=== PATIENT | female | born 1970 | race Caucasian/White ===

== ENCOUNTER 2017-03-27 15:53 | Emergency (ER) | payer SELFPAY ==
[2017-03-27] MEDS ORDERED: IBUPROFEN 200 MG TAB PO ONE (16:36)
[2017-03-27] MEDS ORDERED: traMADol 37.5MG/APAP 325MG 1 EA TAB PO ONE (16:37)
[2017-03-27] MEDS ORDERED: ONDANSETRON ODT 8 MG TAB SL ONE (16:37)
[2017-03-27 16:39] VITALS: TEMP 99
--- NOTE | 2017-03-27 17:00 | RAD ---
EXAM: Shoulder,Left 2 or More Views CLINICAL INDICATION: 47-year-old female status post trauma. TECHNIQUE: Two views LEFT shoulder were obtained in AP, internal/external rotation projection. COMPARISON: None. FINDINGS: There is no fracture or dislocation. The joint spaces are preserved. No soft tissue abnormalities are seen. IMPRESSION: Limited two views of the shoulder without findings to suggest acute fracture or dislocation. If there is clinical concern for dislocation, transscapular projection is recommended. Electronically signed by: Kasey Quiñonez MD 03/27/2017 4:58 PM CDT Workstation: [id number]
--- NOTE | 2017-03-27 17:15 | ED.PDOC ---
History of Present Illness - General Chief Complaint: Upper Extremity Injury Stated Complaint: LEFT SHOULDER PAIN Time Seen by Provider: 03/27/17 16:36 Source: patient Exam Limitations: no limitations - History of Present Illness Initial Comments: PT REPORTS HISTORY OF PREVIOUS ROTATOR CUFF INJURY TO LEFT SHOULDER ABOUT 1 YEAR AGO. PT REPORTS RE INJURING LEFT SHOULDER YESTERDAY AFTER CARRYING A BUCKET OF WATER. Occurred: yesterday Method of Injury: other - HEAVY LIFTING Improving Factors: immobilization Worsening Factors: movement Allergies/Adverse Reactions: Allergies NO KNOWN ALLERGY Allergy (Verified 05/12/15 15:04) Home Medications: Ambulatory Orders HYDROcodone 10MG/APAP 325MG [Rosepine 10/325] 1 tab PO TID PRN 05/12/15 Levothyroxine Sodium 100 mcg PO DAILY 09/22/15 Lorazepam 0.5 mg PO BID PRN #10 tab 04/02/16 Ibuprofen 800 mg PO Q8HR PRN #30 tab 03/27/17 Tramadol HCl 50 mg PO Q6HRS #30 tab 03/27/17 Review of Systems - Review of Systems Constitutional: Denies: chills, fever Respiratory: Denies: cough, short of breath Cardiology: Denies: chest pain, palpitations Musculoskeletal: States: see HPI, joint pain, muscle pain. Denies: joint swelling Past Medical History (General) - Patient Medical History Hx Seizures: No Hx Stroke: No Hx Dementia: No Hx Asthma: No Hx of COPD: No Hx Cardiac Disorders: No Hx Congestive Heart Failure: No Hx Pacemaker: No Hx Hypertension: No Hx Thyroid Disease: Yes Hx Diabetes: No Hx Gastroesophageal Reflux: Yes - Hx hiatal hernia Hx Renal Disease: No Hx Cancer: No Hx of HIV: No Hx Hepatitis C: No Hx MRSA: No Surgical History: tonsillectomy, Hysterectomy, other - Vaccination History Hx Influenza Vaccination: Yes Hx Pneumococcal Vaccination: No - Social History Hx Tobacco Use: Yes - Female History Patient : No Family Medical History - Family History Mother Family History: Unknown Living Status: Hx Family Cancer: Yes - breast w/METS Physical Exam - Physical Exam General Appearance: Alert, Obvious distress Neck: non-tender, full range of motion Cardiovascular/Respiratory: regular rate, rhythm, no M/R/G, normal breath sounds Back Exam: normal inspection, no vertebral tenderness Shoulder Exam: normal inspection, soft tissue tenderness - DIFFUSE Elbow/Forearm Exam: normal inspection, non-tender, no evidence of injury Wrist Exam: normal inspection, non-tender, no evidence of injury Hand Exam: normal inspection, non-tender, no evidence of injury Neuro/Tendon: normal sensation Mental Status: alert, oriented x 3 Skin Exam: normal color, warm/dry Progress - Progress Progress: 03/27/17 17:16 XRAY FINDINGS DISCUSSED WITH PT. WILL PLACE PT IN [place] AND RECOMMEND CONTINUED NSAIDS AND TRAMADOL ALONG WITH ORTHO REFERRAL IF SYMPTOMS PERSIST. - EKG/XRAY/CT XRAY: LEFT SHOULDER, WNL PER RAD Departure - Departure Clinical Impression: Sprain and strain of shoulder and upper arm Time of Disposition: 17:17 Disposition: Discharge to Home or Self Care Condition: Good Departure Forms: ED Discharge - Pt. Copy, Patient Portal Self Enrollment Activity: no lifting, no pushing/pulling with affected limb Referrals: Jeremy Garcia MD [Active Staff] - 1-2 Weeks Prescriptions: Tramadol HCl 50 mg PO Q6HRS #30 tab Ibuprofen 800 mg PO Q8HR PRN #30 tab PRN Reason: Pain Home Medications: Ambulatory Orders HYDROcodone 10MG/APAP 325MG [Rosepine 10/325] 1 tab PO TID PRN 05/12/15 Levothyroxine Sodium 100 mcg PO DAILY 09/22/15 Lorazepam 0.5 mg PO BID PRN #10 tab 04/02/16 Ibuprofen 800 mg PO Q8HR PRN #30 tab 03/27/17 Tramadol HCl 50 mg PO Q6HRS #30 tab 03/27/17
[2017-03-27 17:47] VITALS: BP 110/72; O2SAT 97
== END 2017-03-27 17:47 | disposition home or self-care (01) ==
LOC: ER 15:53
DX: S43.409A Unspecified sprain of unspecified shoulder joint, initial encounter (principal); E07.9 Disorder of thyroid, unspecified; K21.9 Gastro-esophageal reflux disease without esophagitis; K44.9 Diaphragmatic hernia without obstruction or gangrene; Z87.891 Personal history of nicotine dependence; X58.XXXA Exposure to other specified factors, initial encounter

== ENCOUNTER 2017-04-20 19:37 | Emergency (ER) | payer SELFPAY ==
[2017-04-20 19:52] VITALS: TEMP 99
[2017-04-20] MEDS ORDERED: SODIUM CHLORIDE 0.9% 1000ML 1,000 ML IVS ONE (19:56)
[2017-04-20] MEDS ORDERED: ONDANSETRON INJ 4 MG/2 ML VIAL IV ONE (19:56)
--- NOTE | 2017-04-20 19:59 | ED.PDOC ---
History of Present Illness - General Chief Complaint: GI Problem Stated Complaint: nausea all day Time Seen by Provider: 04/20/17 19:51 Information Source: patient, RN notes reviewed, Vital Signs reviewed Exam Limitations: no limitations - History of Present Illness Initial Comments: Patient comes to ER via private vehicle with c/o nausea and vomiting all day. No fever, chills, abdominal pain or diarrhea. Reports she has not been able to even keep a sip of water down. Feels thirsty. Abdominal Pain Onset Location: other - Denies Timing/Duration: 7-24 hours Improving Factors: nothing Worsening Factors: eating Associated Symptoms: nausea/vomiting Review of Systems - Review of Systems Constitutional: States: malaise. Denies: chills, fever EENTM: States: no symptoms reported Respiratory: States: no symptoms reported Cardiology: States: no symptoms reported Gastrointestinal/Abdominal: States: nausea, vomiting. Denies: abdominal pain, diarrhea Genitourinary: States: no symptoms reported Musculoskeletal: States: no symptoms reported Skin: States: no symptoms reported Neurological: States: no symptoms reported All other Systems: No Change from Baseline Past Medical History (General) - Patient Medical History Hx Seizures: No Hx Stroke: No Hx Dementia: No Hx Asthma: No Hx of COPD: No Hx Cardiac Disorders: No Hx Congestive Heart Failure: No Hx Pacemaker: No Hx Hypertension: No Hx Thyroid Disease: Yes Hx Diabetes: No Hx Gastroesophageal Reflux: Yes - Hx hiatal hernia Hx Renal Disease: No Hx Cancer: No Hx of HIV: No Hx Hepatitis C: No Hx MRSA: No Surgical History: Hysterectomy - Vaccination History Hx Influenza Vaccination: Yes Hx Pneumococcal Vaccination: No Immunizations Up to Date: No - Social History Hx Tobacco Use: Yes - Female History Patient is a Female of Child Bearing Age (10 -59 yrs old): No Patient : No Family Medical History - Family History Mother Family History: Unknown Living Status: Hx Family Cancer: Yes - breast w/METS Physical Exam - Physical Exam General Appearance: Alert, No apparent distress, Ill Appearing, Well Developed, Well Groomed, Well Hydrated, Well Nourished Neck: non-tender, supple, normal inspection Respiratory: lungs clear, normal breath sounds, no respiratory distress, no accessory muscle use Cardiovascular/Chest: regular rate, rhythm, no gallop, no JVD, no murmur Gastrointestinal/Abdominal: soft, no organomegaly, no pulsatile mass, abnormal bowel sounds - hyperactive, tenderness - mild, diffuse w/o guarding or rebound Extremity: normal range of motion Neurologic: alert, normal mood/affect, oriented x 3 Skin Exam: normal color, warm/dry Comments: Last Vital Signs Temp 99.0 F 04/20/17 19:47 Pulse 70 04/20/17 19:47 Resp 18 04/20/17 19:47 BP 134/86 04/20/17 19:47 Pulse Ox 97 04/20/17 19:47 Progress - Progress Progress: 04/20/17 20:32 Patient reports no improvement with Zofran 8mg IV. Will give Phenergan 12.5mg IV 04/20/17 21:22 Patient reports she is feeling better. No vomiting since arrival to ER - Results/Orders Results/Orders: Laboratory Tests 04/20/17 04/20/17 19:56 19:56 WBC 8.6 RBC 4.51 Hgb 13.7 Hct 40.5 MCV 89.9 MCH 30.3 MCHC 33.7 RDW 14.4 Plt Count 285 MPV 10.1 Absolute Neuts (auto) 5.40 Absolute Lymphs (auto) 1.90 Absolute Monos (auto) 0.80 Absolute Eos (auto) 0.40 Absolute Basos (auto) 0.10 Neutrophils % 63.1 Lymphocytes % 22.2 Monocytes % 8.9 Eosinophils % 4.8 Basophils % 1.0 Sodium 140 Potassium 3.6 Chloride 103 Carbon Dioxide 29 Anion Gap 11.6 L BUN 11 Creatinine 0.80 BUN/Creatinine Ratio 13.8 Random Glucose 104 Serum Osmolality 279.1 Calcium 9.2 Departure - Departure Clinical Impression: Vomiting Qualifiers: Vomiting type: bilious vomiting Nausea presence: with nausea Qualified Code(s) : R11.14 - Bilious vomiting Time of Disposition: 21:33 Disposition: Discharge to Home or Self Care Condition: Good Departure Forms: ED Discharge - Pt. Copy, Patient Portal Self Enrollment Instructions: DI for Vomiting -- Adult Diet: resume usual diet Activity: increase activity as tolerated Prescriptions: Promethazine Tab [Phenergan Tablet] 25 mg PO Q6HRS PRN #12 tab PRN Reason: Nausea/Vomiting Home Medications: Ambulatory Orders Promethazine Tab [Phenergan Tablet] 25 mg PO Q6HRS PRN #12 tab 04/20/17
[2017-04-20] MEDS ORDERED: PROMETHAZINE HCL INJ 12.5 MG in SODIUM CHLORIDE 0.9% 50ML 50 ML IVPB ONE (20:33)
[2017-04-20] MEDS ORDERED: SODIUM CHLORIDE 0.9% 50ML 50 ML ONE (20:44)
[2017-04-20] MEDS ORDERED: PROMETHAZINE HCL INJ 25 MG/ML VIAL ONE (20:44)
[2017-04-20 21:46] VITALS: BP 127/79; O2SAT 99
== END 2017-04-20 21:47 | disposition home or self-care (01) ==
LOC: ER 19:37
DX: R11.14 Bilious vomiting (principal); E07.9 Disorder of thyroid, unspecified; K21.9 Gastro-esophageal reflux disease without esophagitis; K44.9 Diaphragmatic hernia without obstruction or gangrene; Z87.891 Personal history of nicotine dependence; Z80.3 Family history of malignant neoplasm of breast
CPT/HCPCS: 36415; 80048; 85025; A4216; J2405; J2550; J7030

== ENCOUNTER 2017-08-30 12:54 | Emergency (ER) | payer SELFPAY ==
[2017-08-30 13:08] VITALS: TEMP 98.6
[2017-08-30] MEDS ORDERED: KETOROLAC TROMETHAMINE INJ 60 MG/2 ML VIAL IM ONE (13:15)
[2017-08-30] MEDS ORDERED: ORPHENADRINE CITRATE 30 MG/ML AMP IM ONE (13:16)
[2017-08-30] MEDS ORDERED: PROMETHAZINE HCL INJ 25 MG/ML VIAL IM ONE (13:17)
--- NOTE | 2017-08-30 13:18 | ED.PDOC ---
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 She has no radiation to ther legs No numbness No sphincter Dysfunction At home she takes Exedrin as needed for pain She denies any New injury Quality/Severity: moderate, severe Back Pain Location: lumbar spine Method of Injury/Prior Injury: prior injury Improving Factors: nothing Worsening Factors: movement Associated Symptoms: denies symptoms Allergies/Adverse Reactions: Allergies NO KNOWN ALLERGY Allergy (Verified 05/12/15 15:04) Home Medications: Ambulatory Orders Acetamin W/Cod #3 Tab [Tylenol w/CODEINE #3] 1 ea PO Q6HR PRN #40 tab 08/30/17 Cyclobenzaprine HCl [Flexeril] 10 mg PO Q8HR #30 tab 08/30/17 Review of Systems - Review of Systems Constitutional: States: no symptoms reported EENTM: States: no symptoms reported Respiratory: States: no symptoms reported Cardiology: States: no symptoms reported Gastrointestinal/Abdominal: States: no symptoms reported Genitourinary: States: no symptoms reported Musculoskeletal: States: no symptoms reported Skin: States: no symptoms reported Neurological: States: no symptoms reported Endocrine: States: no symptoms reported Hematologic/Lymphatic: States: no symptoms reported Past Medical History (General) - Patient Medical History Hx Seizures: No Hx Stroke: No Hx Dementia: No Hx Asthma: No Hx of COPD: No Hx Cardiac Disorders: No Hx Congestive Heart Failure: No Hx Pacemaker: No Hx Hypertension: No Hx Thyroid Disease: Yes Hx Diabetes: No Hx Gastroesophageal Reflux: Yes - Hx hiatal hernia Hx Renal Disease: No Hx Cancer: No Hx of HIV: No Hx Hepatitis C: No Hx MRSA: No - Vaccination History Hx Influenza Vaccination: Yes Hx Pneumococcal Vaccination: No - Social History Hx Tobacco Use: Yes - Female History Patient : No Family Medical History - Family History Mother Family History: Unknown Living Status: Hx Family Cancer: Yes - breast w/METS Physical Exam - Physical Exam General Appearance: Anxious, Well Developed, Well Groomed, Well Hydrated, Well Nourished Eyes, Ears, Nose, Throat Exam: TMs normal Neck Exam: non-tender, full range of motion, normal alignment Cardiovascular/Respiratory: regular rate, rhythm, no M/R/G, normal peripheral pulses, no JVD, normal breath sounds Gastrointestinal/Abdominal: normal bowel sounds, non tender, soft, no organomegaly, no pulsatile mass Extremity Exam: no evidence of injury, normal range of motion, non-tender Departure - Departure Clinical Impression: Lumbar back pain Disposition: Discharge to Home or Self Care Condition: Good Departure Forms: ED Discharge - Pt. Copy, Patient Portal Self Enrollment Diet: regular diet Activity: walking as tolerated Home Medications: Ambulatory Orders Acetamin W/Cod #3 Tab [Tylenol w/CODEINE #3] 1 ea PO Q6HR PRN #40 tab 08/30/17 Cyclobenzaprine HCl [Flexeril] 10 mg PO Q8HR #30 tab 08/30/17
[2017-08-30 15:02] VITALS: BP 106/59; O2SAT 97
== END 2017-08-30 15:04 | disposition home or self-care (01) ==
LOC: ER 12:54
DX: M54.5 Low back pain (principal); E07.9 Disorder of thyroid, unspecified; K21.9 Gastro-esophageal reflux disease without esophagitis; K44.9 Diaphragmatic hernia without obstruction or gangrene; Z87.891 Personal history of nicotine dependence
CPT/HCPCS: J1885; J2360; J2550

== ENCOUNTER 2018-01-26 12:13 | Emergency (ER) | payer SELFPAY ==
[2018-01-26 12:59] VITALS: TEMP 98.8; O2SAT 100
--- NOTE | 2018-01-26 13:15 | ED.PDOC ---
History of Present Illness - General Chief Complaint: Upper Extremity Injury Stated Complaint: left upper extremity/neck pain Time Seen by Provider: 01/26/18 12:16 Source: patient Exam Limitations: no limitations - History of Present Illness Initial Comments: the patient is a 47-year-old female presenting to the emergency room secondary to pain in her left shoulder that is of a long duration. She has recently had a flare of her left shoulder pain that is chronic. She has had multiple rotator cuff injuries in the past. She has had rhomboid strains in the past. She has also had multiple spinal fractures in the past. She has a history of opioid abuse. The patient is having some spasm of the rhomboid muscle and she is also having some tightening of the rotator cuff on the left. She is having some mild paresthesias down her left arm from this. There is no significant muscle wasting that I can see. She is neurovascularly preserved otherwise. She is alert and oriented. No recent injury. Timing/Duration: unsure Severity: moderate Improving Factors: nothing Worsening Factors: movement Associated Symptoms: denies symptoms Allergies/Adverse Reactions: Allergies NO KNOWN ALLERGY Allergy (Verified 05/12/15 15:04) Home Medications: Ambulatory Orders Acetamin W/Cod #3 Tab [Tylenol w/CODEINE #3] 1 ea PO Q6HR PRN #40 tab 08/30/17 Cyclobenzaprine HCl [Flexeril] 10 mg PO Q8HR #30 tab 08/30/17 Cyclobenzaprine HCl [Flexeril] 5 mg PO TID PRN #30 tab 01/26/18 Review of Systems - Review of Systems Constitutional: States: no symptoms reported EENTM: States: no symptoms reported Respiratory: States: no symptoms reported Cardiology: States: no symptoms reported Gastrointestinal/Abdominal: States: no symptoms reported Genitourinary: States: no symptoms reported Musculoskeletal: States: see HPI Skin: States: no symptoms reported Neurological: States: no symptoms reported Endocrine: States: no symptoms reported All other Systems: No Change from Baseline Past Medical History (General) - Patient Medical History Hx Seizures: No Hx Stroke: No Hx Dementia: No Hx Asthma: No Hx of COPD: No Hx Cardiac Disorders: No Hx Congestive Heart Failure: No Hx Pacemaker: No Hx Hypertension: No Hx Thyroid Disease: Yes Hx Diabetes: No Hx Gastroesophageal Reflux: Yes - Hx hiatal hernia Hx Renal Disease: No Hx Cancer: No Hx of HIV: No Hx Hepatitis C: No Hx MRSA: No - Vaccination History Hx Influenza Vaccination: Yes Hx Pneumococcal Vaccination: No - Social History Hx Tobacco Use: Yes - Female History Patient : No Family Medical History - Family History Mother Family History: Unknown Living Status: Hx Family Cancer: Yes - breast w/METS Physical Exam - Physical Exam General Appearance: Alert, Comfortable, No apparent distress Eye Exam: bilateral normal Ears, Nose, Throat: normal ENT inspection Neck: other - mild trapezius spasm Respiratory: no respiratory distress, no accessory muscle use Cardiovascular/Chest: normal peripheral pulses, no edema Peripheral Pulses: radial,right: 2+, radial,left: 2+ Gastrointestinal/Abdominal: non tender, soft Rectal Exam: deferred Back Exam: no CVA tenderness Extremity: no pedal edema, no calf tenderness, normal capillary refill, other - ee history of present illness Neurologic: shop director II-XII nml as tested, alert, normal mood/affect, oriented x 3, other - see history of present illness Skin Exam: normal color Comments: Vital Signs - 24 hr 01/26/18 12:46 Temperature 98.8 F Pulse Rate [ 89 left brachial] Respiratory 18 Rate Blood Pressure 119/73 [left brachial] O2 Sat by Pulse 100 Oximetry Progress - Progress Progress: 01/26/18 13:15 the patient is a 47-year-old female presenting with acute on chronic left shoulder pain likely related to previous spinal and rotator cuff injuries. She is having some muscle spasm. The patient is being given a dose of Toradol and prednisone here. She is going to be placed on Flexeril 5 mg 3 times a day as needed for the next week. She needs to do some range of motion exercises of the shoulder to help reduce spasm. Topical heat in the form of icy hot or Biofreeze or heat pad may also prove beneficial. She probably needs to restart some of her physical therapy exercises for the shoulder as well. She should follow up with her primary care doctor within the next week or 2. ER warnings were given for significant worsening. Departure - Departure Clinical Impression: Chronic pain in left shoulder Disposition: Discharge to Home or Self Care Condition: Fair Departure Forms: ED Discharge - Pt. Copy, Patient Portal Self Enrollment Diet: regular diet Activity: increase activity as tolerated Prescriptions: Cyclobenzaprine HCl [Flexeril] 5 mg PO TID PRN #30 tab PRN Reason: Muscle Spasms Home Medications: Ambulatory Orders Acetamin W/Cod #3 Tab [Tylenol w/CODEINE #3] 1 ea PO Q6HR PRN #40 tab 08/30/17 Cyclobenzaprine HCl [Flexeril] 10 mg PO Q8HR #30 tab 08/30/17 Cyclobenzaprine HCl [Flexeril] 5 mg PO TID PRN #30 tab 01/26/18 Additional Instructions: the patient is a 47-year-old female presenting with acute on chronic left shoulder pain likely related to previous spinal and rotator cuff injuries. She is having some muscle spasm. The patient is being given a dose of Toradol and prednisone here. She is going to be placed on Flexeril 5 mg 3 times a day as needed for the next week. She needs to do some range of motion exercises of the shoulder to help reduce spasm. Topical heat in the form of icy hot or Biofreeze or heat pad may also prove beneficial. She probably needs to restart some of her physical therapy exercises for the shoulder as well. She should follow up with her primary care doctor within the next week or 2. ER warnings were given for significant worsening.
[2018-01-26] MEDS: CYCLOBENZAPRINE HCL 10 MG TAB PO ONE (13:19)
[2018-01-26] MEDS: predniSONE 20 MG TAB PO ONE (13:19)
[2018-01-26] MEDS: KETOROLAC TROMETHAMINE INJ 30 MG/ML VIAL IM ONE (13:20)
[2018-01-26 13:41] VITALS: BP 116/76
== END 2018-01-26 13:44 | disposition home or self-care (01) ==
LOC: ER 12:13
DX: G89.29 Other chronic pain (principal); M25.512 Pain in left shoulder; E07.9 Disorder of thyroid, unspecified; K21.9 Gastro-esophageal reflux disease without esophagitis
CPT/HCPCS: J1885; J7512

== ENCOUNTER 2018-03-28 16:59 | Emergency (ER) | payer MEDICARE ==
[2018-03-28 17:14] VITALS: TEMP 97.7
[2018-03-28] MEDS ORDERED: CYCLOBENZAPRINE HCL 10 MG TAB PO ONE (17:31)
[2018-03-28] MEDS ORDERED: KETOROLAC TROMETHAMINE INJ 30 MG/ML VIAL IM ONE (17:31)
--- NOTE | 2018-03-28 17:36 | ED.PDOC ---
History of Present Illness - General Chief Complaint: General Stated Complaint: left shoulder pain Time Seen by Provider: 03/28/18 17:31 Source: patient, RN notes reviewed, Vital Signs reviewed, family Exam Limitations: no limitations - History of Present Illness Initial Comments: "My rotator cuff" pain. Chronic & recurring. Her plan with her PCP is to now get an MRI since she has insurance. Not a new problem. Occurred: other - 2 days ago Pain - Upper Extremity: severe: Shoulder, left Method of Injury: other - none Improving Factors: rest, other - "muscle relaxer & Toradol" Worsening Factors: movement Allergies/Adverse Reactions: Allergies NO KNOWN ALLERGY Allergy (Verified 03/28/18 17:14) Home Medications: Ambulatory Orders Acetamin W/Cod #3 Tab [Tylenol w/CODEINE #3] 1 ea PO Q6HR PRN #40 tab 08/30/17 Cyclobenzaprine HCl [Flexeril] 10 mg PO Q8HR #30 tab 08/30/17 Cyclobenzaprine HCl [Flexeril] 5 mg PO TID PRN #30 tab 01/26/18 Cyclobenzaprine HCl [Flexeril] 10 mg PO TID PRN #15 tab 03/28/18 Review of Systems - Review of Systems Constitutional: States: no symptoms reported EENTM: States: no symptoms reported Respiratory: States: no symptoms reported Cardiology: States: no symptoms reported Musculoskeletal: States: see HPI, other - specifically the trapezius Skin: States: no symptoms reported Neurological: States: no symptoms reported Past Medical History (General) - Patient Medical History Hx Seizures: No Hx Stroke: No Hx Dementia: No Hx Asthma: No Hx of COPD: No Hx Cardiac Disorders: No Hx Congestive Heart Failure: No Hx Pacemaker: No Hx Hypertension: No Hx Thyroid Disease: Yes Hx Diabetes: No Hx Gastroesophageal Reflux: Yes - Hx hiatal hernia Hx Renal Disease: No Hx Cancer: No Hx of HIV: No Hx Hepatitis C: No Hx MRSA: No Hx Other PMH: Yes - opiate addiction - Vaccination History Hx Influenza Vaccination: Yes Hx Pneumococcal Vaccination: No - Social History Hx Tobacco Use: Yes Hx Alcohol Use: No Hx Substance Use: - "chemical dependency" - Female History Patient : No Family Medical History - Family History Mother Family History: Unknown Living Status: Hx Family Cancer: Yes - breast w/METS Physical Exam - Physical Exam General Appearance: Alert, Comfortable, No apparent distress Neck: non-tender, full range of motion, supple, normal inspection Cardiovascular/Respiratory: no JVD Back Exam: normal inspection Shoulder Exam: normal inspection, no evidence of injury, limited ROM, pain - over left trapezius, soft tissue tenderness Elbow/Forearm Exam: normal inspection, non-tender, no evidence of injury Wrist Exam: no evidence of injury Departure - Departure Clinical Impression: Chronic pain in left shoulder Time of Disposition: 17:35 Disposition: Discharge to Home or Self Care Condition: Good Departure Forms: ED Discharge - Pt. Copy, Patient Portal Self Enrollment Referrals: SAVANAH BACH [Primary Care Provider] - 1-2 Weeks Prescriptions: Cyclobenzaprine HCl [Flexeril] 10 mg PO TID PRN #15 tab PRN Reason: Muscle Spasms Home Medications: Ambulatory Orders Acetamin W/Cod #3 Tab [Tylenol w/CODEINE #3] 1 ea PO Q6HR PRN #40 tab 08/30/17 Cyclobenzaprine HCl [Flexeril] 10 mg PO Q8HR #30 tab 08/30/17 Cyclobenzaprine HCl [Flexeril] 5 mg PO TID PRN #30 tab 01/26/18 Cyclobenzaprine HCl [Flexeril] 10 mg PO TID PRN #15 tab 03/28/18
[2018-03-28 18:03] VITALS: BP 105/61; O2SAT 98
== END 2018-03-28 18:03 | disposition home or self-care (01) ==
LOC: ER 16:59
DX: G89.29 Other chronic pain (principal); M25.512 Pain in left shoulder; E07.9 Disorder of thyroid, unspecified; K21.9 Gastro-esophageal reflux disease without esophagitis; K44.9 Diaphragmatic hernia without obstruction or gangrene; Z87.891 Personal history of nicotine dependence

== ENCOUNTER 2018-04-10 16:42 | Emergency (ER) | payer MEDICARE ==
[2018-04-10] MEDS ORDERED: DEXAMETHASONE INJ 4 MG/ML VIAL IV ONE (18:37)
[2018-04-10] MEDS ORDERED: KETOROLAC TROMETHAMINE INJ 30 MG/ML VIAL IV ONE (18:37)
[2018-04-10] MEDS ORDERED: CYCLOBENZAPRINE HCL 10 MG TAB PO ONE (18:37)
--- NOTE | 2018-04-10 18:40 | ED.PDOC ---
History of Present Illness - General Chief Complaint: Back Pain or Injury Stated Complaint: back pain Time Seen by Provider: 04/10/18 18:37 Source: patient, family Exam Limitations: no limitations - History of Present Illness Initial Comments: patient comes with sudden pain to her back from about 11:30 this morning. Patient stated at 10:30 her back popped but she had no injury and no trauma. She does not look anything heavy and felt a normal health prior to this. Patient states that 11:30 the pain became severe to where she could not move and felt the pain radiating down her right leg. Patient has no bowel or bladder incontinence. She does state that she has some decreased sensation to the right lower extremity. Patient has had difficulty with her back in the distant past. 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 Patient fell to the ground and had severe pain and was told she had injured several disks. At that time she had right sided paralysis and had to have physical therapy for the next year to be able to walk again. Patient eventually returned to her normal function without surgery or other intervention. Patient currently does not lift more than 5 pounds and denies any recent trauma or increased activity. Patient is otherwise healthy. Timing/Duration: 7-24 hours Quality/Severity: severe Back Pain Location: lumbar spine Back Pain Radiation: lower legs Method of Injury/Prior Injury: unknown Improving Factors: rest Worsening Factors: movement Allergies/Adverse Reactions: Allergies NO KNOWN ALLERGY Allergy (Verified 03/28/18 17:14) Home Medications: Ambulatory Orders Acetamin W/Cod #3 Tab [Tylenol w/CODEINE #3] 1 ea PO Q6HR PRN #40 tab 08/30/17 Cyclobenzaprine HCl [Flexeril] 10 mg PO Q8HR #30 tab 08/30/17 Cyclobenzaprine HCl [Flexeril] 5 mg PO TID PRN #30 tab 01/26/18 Cyclobenzaprine HCl [Flexeril] 10 mg PO TID PRN #15 tab 03/28/18 Cyclobenzaprine HCl [Flexeril] 10 mg PO TID 10 Days #30 tab 04/10/18 Review of Systems - Review of Systems Constitutional: States: no symptoms reported. Denies: chills, fever, weakness EENTM: States: no symptoms reported Respiratory: States: no symptoms reported Cardiology: States: no symptoms reported Gastrointestinal/Abdominal: States: no symptoms reported Genitourinary: States: no symptoms reported Musculoskeletal: States: back pain Skin: States: no symptoms reported Neurological: States: see HPI Past Medical History (General) - Patient Medical History Hx Seizures: No Hx Stroke: No Hx Dementia: No Hx Asthma: No Hx of COPD: No Hx Cardiac Disorders: No Hx Congestive Heart Failure: No Hx Pacemaker: No Hx Hypertension: No Hx Thyroid Disease: Yes Hx Diabetes: No Hx Gastroesophageal Reflux: Yes - Hx hiatal hernia Hx Renal Disease: No Hx Cancer: No Hx of HIV: No Hx Hepatitis C: No Hx MRSA: No - Vaccination History Hx Influenza Vaccination: Yes Hx Pneumococcal Vaccination: No - Social History Hx Tobacco Use: Yes Hx Alcohol Use: No Hx Substance Use: - "chemical dependency" - Female History Patient : No Family Medical History - Family History Mother Family History: Unknown Living Status: Hx Family Cancer: Yes - breast w/METS Physical Exam - Physical Exam General Appearance: Alert, Obvious distress Eyes, Ears, Nose, Throat Exam: PERRL/EOMI, normal ENT inspection, TMs normal, pharynx normal Neck Exam: non-tender, full range of motion, normal alignment, normal inspection Cardiovascular/Respiratory: regular rate, rhythm, no M/R/G, normal peripheral pulses, no JVD, normal breath sounds, no respiratory distress Peripheral Pulses: radial,right: 2+, radial,left: 2+, posterior tibialis,right: 2+, posterior tibialis,left: 2+ Gastrointestinal/Abdominal: normal bowel sounds, non tender, soft, no organomegaly Back Exam: other - TTP to the R of L3-L5 with no gross deformity Extremity Exam: no evidence of injury Neurologic: alert, oriented x 3, other - Babinskis normal with normal sensation to the lower extremities, motor is 4/5 on the R with positive straight leg raise Skin Exam: normal color Progress - Progress Progress: 04/10/18 19:51 Patient is doing better. After medication she can move her leg and the feeling is normal. Will send her home on eril and she is to keep her appointment with her doctor on Friday to discuss if MRI is needed Departure - Departure Clinical Impression: Lumbar back pain Qualifiers: Chronicity: chronic Back pain laterality: right Sciatica presence: with sciatica Sciatica laterality: sciatica of right side Qualified Code(s): M54.41 - Lumbago with sciatica, right side; G89.29 - Other chronic pain Disposition: Discharge to Home or Self Care Condition: Fair Departure Forms: ED Discharge - Pt. Copy, Patient Portal Self Enrollment Instructions: DI for Low Back Pain Activity: increase activity as tolerated, no pushing/pulling with affected limb Referrals: SAVANAH BACH [Primary Care Provider] - 1-2 Weeks Home Medications: Ambulatory Orders Acetamin W/Cod #3 Tab [Tylenol w/CODEINE #3] 1 ea PO Q6HR PRN #40 tab 08/30/17 Cyclobenzaprine HCl [Flexeril] 10 mg PO Q8HR #30 tab 08/30/17 Cyclobenzaprine HCl [Flexeril] 5 mg PO TID PRN #30 tab 01/26/18 Cyclobenzaprine HCl [Flexeril] 10 mg PO TID PRN #15 tab 03/28/18 Cyclobenzaprine HCl [Flexeril] 10 mg PO TID 10 Days #30 tab 04/10/18 Additional Instructions: follow up with PCP on Friday as scheduled. Return to ER for decrease sensation , increase pain, decrease motor
[2018-04-10 18:45] VITALS: TEMP 98.6
[2018-04-10] MEDS ORDERED: MEPERIDINE HCL 50 MG/ML VIAL IV ONE (19:15)
[2018-04-10 20:19] VITALS: BP 118/80; O2SAT 98
== END 2018-04-10 20:10 | disposition home or self-care (01) ==
LOC: ER 16:42
DX: M54.41 Lumbago with sciatica, right side (principal); G89.29 Other chronic pain; K21.9 Gastro-esophageal reflux disease without esophagitis; E07.9 Disorder of thyroid, unspecified; Z87.891 Personal history of nicotine dependence
CPT/HCPCS: J1100; J1885; J2175

== ENCOUNTER → 2018-04-23 | Outpatient (CLI) | payer MEDICARE ==
--- NOTE | 2018-04-23 16:44 | MRI ---
EXAM DESCRIPTION: Lumbar Spine w/o Contrast : Magnetic Resonance Imaging. CLINICAL HISTORY: RADICULOPATHY COMPARISON: LUMBAR TECHNIQUE: Multiplanar, multiple standard sequences, non contrast MRI, lumbar spine. FINDINGS: L5-S1: Normal signal in the disc. No significant bulging. Minimal facet arthrosis. Canal and foramina are patent. L4-5: Minimal disc desiccation and disc space maintained. Narrowing of the interpedicular distance and hypertrophy of the flavum ligaments. Right paracentral 5 mm disc bulge or small protrusion abutting the thecal sac and the descending right L5 nerve above the lateral recess. Mild to moderate canal narrowing. L3-4: Normal signal in the disc and disc space preserved. Minimal narrowing of the interpedicular distance of the posterior canal and minimal hypertrophy of the flavum ligaments. Mild canal narrowing. Bilateral foramina are patent. L2-3: Normal signal in the disc and disc space preserved. Posterior elements unremarkable. Canal and foramina are patent. L1-2: Normal signal in the disc and disc space preserved. Posterior elements unremarkable. Canal and foramina are patent. T12-L1: Normal signal in the disc and disc space preserved. Posterior elements unremarkable. Canal and foramina are patent. Conus terminates at T12-L1. Bright T2 signal in the central cord. T11-12 disc desiccated and midline and right paracentral disc bulge abutting the cord. The included cord shows no intramedullary mass. Lack of lumbar lordosis but no significant scoliosis. Paravertebral soft tissues minimal muscle atrophy.. Normal marrow signal in the remaining vertebral bodies and the posterior elements. Vertebral bodies are not compressed at any level. IMPRESSION: 1. Right L4-5 posterior focal bulge or protrusion of the disc abutting the thecal sac and the descending right L5 nerve above the lateral recess. Canal narrowing. Correlate for right L5 radiculopathy. 2. Narrowing of the canal at some levels due to bulging disc, narrowed interpedicular distance of the canal, or flavum ligament hypertrophy. Minimal facet disease. 3. Conus terminates at T12-L1. Bulging T11-12 disc. The included cord shows syringomyelia. This could be from previous trauma or inflammatory process. Cannot exclude an intramedullary, extra medullary/intradural, or extradural lesion in the thoracic spine. Consider follow-up MRI scan of the thoracic spine without and with gadolinium IV contrast. This exam should also include the L1 level of the lumbar spine. Electronically signed by: Larry Rees MD 04/23/2018 4:43 PM CDT
== END ==
LOC: MRI 09:58
PROVIDERS: ATTEND Urology
DX: M51.16 Intervertebral disc disorders with radiculopathy, lumbar region (principal); M51.14 Intervertebral disc disorders with radiculopathy, thoracic region

== ENCOUNTER 2018-07-25 20:17 | Emergency (ER) | payer OTHER ==
[2018-07-25] MEDS ORDERED: KETOROLAC TROMETHAMINE INJ 60 MG/2 ML VIAL IM ONE (20:36)
[2018-07-25] MEDS ORDERED: GABAPENTIN 100 MG CAP PO ONE (20:36)
--- NOTE | 2018-07-25 20:39 | ED.PDOC ---
History of Present Illness - General Chief Complaint: General Stated Complaint: left side of her face hurts Time Seen by Provider: 07/25/18 20:26 Source: patient Exam Limitations: no limitations - History of Present Illness Initial Comments: patient comes in today for severe pain left side of her face. Patient stated that approximately at 2 PM she was walking around a corner and hit her head on a shelf that shattered out from the wall. At that time she had slight confusion and vision change for several minutes but that resolved over the next 10-15 minutes and she thought she was her normal self. However, she remains with severe burning pain over the left side of her face. No weakness or numbness. She's never had this problem before. She does have a history of chronic back pain and currently is undergoing both physical therapy and medication Timing/Duration: 4-6 hours Severity: severe Improving Factors: nothing Worsening Factors: nothing Associated Symptoms: denies symptoms Allergies/Adverse Reactions: Allergies NO KNOWN ALLERGY Allergy (Verified 03/28/18 17:14) Home Medications: Ambulatory Orders Acetamin W/Cod #3 Tab [Tylenol w/CODEINE #3] 1 ea PO Q6HR PRN #40 tab 08/30/17 Cyclobenzaprine HCl [Flexeril] 10 mg PO Q8HR #30 tab 08/30/17 Cyclobenzaprine HCl [Flexeril] 5 mg PO TID PRN #30 tab 01/26/18 Cyclobenzaprine HCl [Flexeril] 10 mg PO TID PRN #15 tab 03/28/18 Cyclobenzaprine HCl [Flexeril] 10 mg PO TID 10 Days #30 tab 04/10/18 Review of Systems - Review of Systems Constitutional: States: no symptoms reported. Denies: chills, fever EENTM: States: see HPI Respiratory: States: no symptoms reported. Denies: cough, short of breath, wheezing Cardiology: States: no symptoms reported. Denies: chest pain, edema, palpitations Gastrointestinal/Abdominal: States: nausea. Denies: abdominal pain, diarrhea, vomiting Genitourinary: States: no symptoms reported Musculoskeletal: States: back pain Past Medical History (General) - Patient Medical History Hx Seizures: No Hx Stroke: No Hx Dementia: No Hx Asthma: No Hx of COPD: No Hx Cardiac Disorders: No Hx Congestive Heart Failure: No Hx Pacemaker: No Hx Hypertension: No Hx Thyroid Disease: Yes Hx Diabetes: No Hx Gastroesophageal Reflux: Yes - Hx hiatal hernia Hx Renal Disease: No Hx Cancer: No Hx of HIV: No Hx Hepatitis C: No Hx MRSA: No - Vaccination History Hx Tetanus, Diphtheria Vaccination: No Hx Influenza Vaccination: Yes Hx Pneumococcal Vaccination: No - Social History Hx Tobacco Use: Yes Hx Chewing Tobacco Use: No Hx Alcohol Use: No Hx Substance Use: - "chemical dependency" Hx Substance Use Treatment: No Hx Depression: No Hx Physical Abuse: No Hx Emotional Abuse: No Hx Suspected Abuse: No - Female History Patient : No Family Medical History - Family History Mother Family History: Unknown Living Status: Hx Family Cancer: Yes - breast w/METS Physical Exam - Physical Exam General Appearance: Alert, No apparent distress Eye Exam: bilateral normal Ears, Nose, Throat: hearing grossly normal, normal pharynx, other - small abrasion to L forehead no instability Neck: non-tender, full range of motion, supple, normal inspection Respiratory: chest non-tender, lungs clear, normal breath sounds Cardiovascular/Chest: normal peripheral pulses, regular rate, rhythm, no edema, no gallop, no JVD, no murmur Gastrointestinal/Abdominal: normal bowel sounds, non tender, soft Neurologic: enrollment management manager II-XII nml as tested, no motor/sensory deficits, alert, oriented x 3 Progress - Results/Orders Results/Orders: Patient Name: RHIANNON LEIGH Gender: Female Date of : 1970 Referring Physician: JULIO C BORWNE Organization: [facility] Accession Number: [id number] Requested Date: July 25, 2018 20:36 Report Status: Final Requested Procedure: 1 Procedure Description: Head Modality: CT Findings Reporting MD: Stacey Hatfield Fellow MD: Not available Dictation Time: Runner On: Not available Nurse Aide Date: EXAM DESCRIPTION: Head CLINICAL HISTORY: 48 years Female head injury mild concussion . Heat with shelf. Left sided and facial pain. COMPARISON: None Technique: Contiguous axial images of the brain were obtained without the administration of intravenous contrast. This exam was performed according to our departmental dose-optimization program which includes use of Automated Exposure Control, adjustment of the mA and/or kV according to patient size and/or use of iterative reconstruction technique. Findings: Brain: No acute intracranial hemorrhage. No territorial infarct. No mass effect. Ventricles: Within normal limits in size Bones: No acute osseous finding. Paranasal sinuses: Well aerated. Mastoid air cells: Well aerated. Soft tissues: Within normal limits Internet Cafe Manager view shows no additional significant finding. IMPRESSION: No acute intracranial finding Departure - Departure Clinical Impression: Trigeminal neuralgia of left side of face Disposition: Discharge to Home or Self Care Condition: Fair Departure Forms: ED Discharge - Pt. Copy, Patient Portal Self Enrollment Referrals: SAVANAH BACH [Primary Care Provider] - 1-2 Weeks Home Medications: Ambulatory Orders Acetamin W/Cod #3 Tab [Tylenol w/CODEINE #3] 1 ea PO Q6HR PRN #40 tab 08/30/17 Cyclobenzaprine HCl [Flexeril] 10 mg PO Q8HR #30 tab 08/30/17 Cyclobenzaprine HCl [Flexeril] 5 mg PO TID PRN #30 tab 01/26/18 Cyclobenzaprine HCl [Flexeril] 10 mg PO TID PRN #15 tab 03/28/18 Cyclobenzaprine HCl [Flexeril] 10 mg PO TID 10 Days #30 tab 04/10/18 Additional Instructions: follow up with PCP on Friday, continue home medications for pain
--- NOTE | 2018-07-25 21:15 | CT ---
EXAM DESCRIPTION: Head CLINICAL HISTORY: 48 years Female head injury mild concussion . Heat with shelf. Left sided and facial pain. COMPARISON: None Technique: Contiguous axial images of the brain were obtained without the administration of intravenous contrast. This exam was performed according to our departmental dose-optimization program which includes use of Automated Exposure Control, adjustment of the mA and/or kV according to patient size and/or use of iterative reconstruction technique. Findings: Brain: No acute intracranial hemorrhage. No territorial infarct. No mass effect. Ventricles: Within normal limits in size Bones: No acute osseous finding. Paranasal sinuses: Well aerated. Mastoid air cells: Well aerated. Soft tissues: Within normal limits Meter Technician view shows no additional significant finding. IMPRESSION: No acute intracranial finding. Electronically signed by: Stacey Hatfield MD 07/25/2018 9:13 PM CDT
[2018-07-26 01:32] VITALS: BP 108/65; TEMP 98.1; O2SAT 98
== END 2018-07-25 21:55 | disposition home or self-care (01) ==
LOC: ER 20:17
DX: G50.0 Trigeminal neuralgia (principal); E07.9 Disorder of thyroid, unspecified; Z87.891 Personal history of nicotine dependence
CPT/HCPCS: 70450; J1885

== ENCOUNTER 2018-08-22 18:32 | Emergency (ER) | payer OTHER ==
--- NOTE | 2018-08-22 18:50 | ED.PDOC ---
History of Present Illness - General Chief Complaint: GI Problem Stated Complaint: N/V/D,achy,joints hurt Time Seen by Provider: 08/22/18 18:40 Information Source: patient Exam Limitations: no limitations - History of Present Illness Initial Comments: Ella Kothari 48 y/o female stated that went shopping at [employer] yesterday then a few hours after gettinng home started to have flu like symptoms,5 episodes of nausea/vomiting ,followed later by watery diarrhea and abdominal cramps but no blood in stool 3-4 x,had also been febrile denies ill contact.Had loss of appetite,able get liquids down. Abdominal Pain Onset Location: generalized abdomen Pain Radiation: no radiation Quality: moderate, cramping Timing/Duration: days - 2 Improving Factors: nothing Worsening Factors: eating Associated Symptoms: other - see hpi Review of Systems - Review of Systems Constitutional: States: fever EENTM: States: no symptoms reported Respiratory: States: no symptoms reported Cardiology: States: no symptoms reported Gastrointestinal/Abdominal: States: see HPI Genitourinary: States: no symptoms reported Musculoskeletal: States: joint pain Skin: States: no symptoms reported Neurological: States: no symptoms reported Endocrine: States: no symptoms reported Past Medical History (General) - Patient Medical History Hx Seizures: No Hx Stroke: No Hx Dementia: No Hx Asthma: No Hx of COPD: No Hx Cardiac Disorders: No Hx Congestive Heart Failure: No Hx Pacemaker: No Hx Hypertension: No Hx Thyroid Disease: Yes Hx Diabetes: No Hx Gastroesophageal Reflux: Yes - Hx hiatal hernia Hx Renal Disease: No Hx Cancer: No Hx of HIV: No Hx Hepatitis C: No Hx MRSA: No Hx Other PMH: Yes - chronic back pains Surgical History: other - hysterectomy,BTL - Vaccination History Hx Tetanus, Diphtheria Vaccination: No Hx Influenza Vaccination: Yes Hx Pneumococcal Vaccination: No - Social History Hx Tobacco Use: Yes Hx Chewing Tobacco Use: No Hx Alcohol Use: No Hx Substance Use: - "chemical dependency" Hx Substance Use Treatment: No Hx Depression: No Hx Physical Abuse: No Hx Emotional Abuse: No Hx Suspected Abuse: No - Activities of Daily Living Patient Lives Alone: No - Female History Patient : No Family Medical History - Family History Mother Family History: Unknown Living Status: Hx Cardiac Disease: Yes - sister Hx Family Cancer: Yes - breast w/METS;brother Hx Family;Other: sister -Lupus Physical Exam - Physical Exam General Appearance: Alert, Comfortable, No apparent distress Eyes, Ears, Nose, Throat Exam: PERRL/EOMI, normal ENT inspection, pharynx normal Neck: non-tender, full range of motion, supple, normal inspection Respiratory: chest non-tender, lungs clear, normal breath sounds Cardiovascular/Chest: normal peripheral pulses, regular rate, rhythm, no murmur Peripheral Pulses: No deficit Gastrointestinal/Abdominal: normal bowel sounds, soft, tenderness - all over no peritoneal signs Back Exam: no CVA tenderness, no vertebral tenderness Extremity: no pedal edema, no calf tenderness Neurologic: alert, oriented x 3 Skin Exam: normal color, warm/dry Lymphatic: no adenopathy Progress - Progress Progress: 08/22/18 21:42 Vital Signs - 8 hr 08/22/18 18:43 Temperature 102 F H Pulse Rate [ 92 H Right Brachial] Respiratory 20 Rate Blood Pressure 108/76 [Right Arm] O2 Sat by Pulse 100 Oximetry 08/22/18 22:35 Unable to give stool sample no nausea/vomiting or diarrhea since she was in ER - Results/Orders Results/Orders: Vital Signs - 8 hr 08/22/18 08/22/18 18:43 21:44 Temperature 102 F H 97.5 F L Pulse Rate [ 92 H 80 Right Brachial] Respiratory 20 20 Rate Blood Pressure 108/76 120/82 [Right Arm] O2 Sat by Pulse 100 98 Oximetry 08/22/18 18:50 IV Care:Saline Lock per Protoc QSHIFT 08/22/18 19:05 INFLUENZA A & B ANTIGEN Stat 08/22/18 19:08 CLOSTRIDIUM DIFFICILE AG/TOXIN Urgent 08/22/18 21:08 STOOL CULTURE Stat NOROVIRUS,EIA STOOL Routine 08/22/18 21:10 URINALYSIS Stat Laboratory Results WBC 8.3 K/mm3 (4.8-10.8) 08/22/18 19:15 RBC 4.37 M/mm3 (4.20-5.40) 08/22/18 19:15 Hgb 13.7 gm/dL (12.0-16.0) 08/22/18 19:15 Hct 40.8 % (36.0-47.0) 08/22/18 19:15 MCV 93.4 fl (81.0-99.0) 08/22/18 19:15 MCH 31.3 pg (27.0-31.0) H 08/22/18 19:15 MCHC 33.5 g/dL (33.0-37.0) 08/22/18 19:15 RDW 14.2 % (11.5-14.5) 08/22/18 19:15 Plt Count 338 K/mm3 (130-400) 08/22/18 19:15 MPV 8.8 fl (7.40-10.4) 08/22/18 19:15 Absolute Neuts (auto) 5.10 K/uL (1.8-6.8) 08/22/18 19:15 Absolute Lymphs (auto) 1.90 K/uL (1.0-3.4) 08/22/18 19:15 Absolute Monos (auto) 0.80 K/uL (0.2-0.8) 08/22/18 19:15 Absolute Eos (auto) 0.40 K/uL (0.0-0.4) 08/22/18 19:15 Absolute Basos (auto) 0.20 K/uL (0.0-0.1) H 08/22/18 19:15 Neutrophils % 61.0 % (42.0-78.0) 08/22/18 19:15 Lymphocytes % 23.4 % (20.0-50.0) 08/22/18 19:15 Monocytes % 9.2 % (2.0-9.0) H 08/22/18 19:15 Eosinophils % 4.5 % (1.0-5.0) 08/22/18 19:15 Basophils % 1.9 % (0.0-2.0) 08/22/18 19:15 Sodium 136 mmol/L (135-145) 08/22/18 19:15 Potassium 4.0 mmol/L (3.6-5.0) 08/22/18 19:15 Chloride 103 mmol/L (101-111) 08/22/18 19:15 Carbon Dioxide 26 mmol/L (21-31) 08/22/18 19:15 Anion Gap 11.0 (12-18) L 08/22/18 19:15 BUN 8 mg/dL (7-18) 08/22/18 19:15 Creatinine 0.84 mg/dL (0.6-1.3) 08/22/18 19:15 BUN/Creatinine Ratio 9.5 (10-20) L 08/22/18 19:15 Random Glucose 86 mg/dL (70-105) 08/22/18 19:15 Serum Osmolality 269.6 mOsm/L (275-295) L 08/22/18 19:15 Lactic Acid 0.8 mmol/L (0.5-2.2) 08/22/18 19:15 Calcium 8.9 mg/dL (8.4-10.2) 08/22/18 19:15 Total Bilirubin 0.7 mg/dL (0.2-1.0) 08/22/18 19:15 AST 18 IU/L (10-42) 08/22/18 19:15 ALT 10 IU/L (10-60) 08/22/18 19:15 Alkaline Phosphatase 89 IU/L (42-121) 08/22/18 19:15 Serum Total Protein 7.4 gm/dL (6.4-8.2) 08/22/18 19:15 Albumin 3.5 g/dl (3.2-5.5) 08/22/18 19:15 Globulin 3.9 gm/dL (2.3-3.5) H 08/22/18 19:15 Albumin/Globulin Ratio 0.9 (1.1-1.9) L 08/22/18 19:15 Lipase 22 U/L (22-51) 08/22/18 19:15 Urine Opiates Screen Positive ng/mL (2000) H 08/22/18 21:05 Urine Barbiturates Negative ng/mL (200) 08/22/18 21:05 Ur Phencyclidine Scrn Negative ng/mL (25) 08/22/18 21:05 U Amphetamin/Meth Scrn Negative ng/mL (1000) 08/22/18 21:05 U Benzodiazepines Scrn Positive ng/mL (200) H 08/22/18 21:05 U Cocaine Metab Screen Negative ng/mL (300) 08/22/18 21:05 U Cannabinoids Screen Negative ng/mL (50) 08/22/18 21:05 Flu SWAB-NEGATIVE 08/22/18 18:50 IV Care:Saline Lock per Protoc QSHIFT 08/22/18 19:05 INFLUENZA A & B ANTIGEN Stat 08/22/18 19:08 CLOSTRIDIUM DIFFICILE AG/TOXIN Urgent 08/22/18 21:08 STOOL CULTURE Stat NOROVIRUS,EIA STOOL Routine 08/22/18 21:10 URINALYSIS Stat Laboratory Results WBC 8.3 K/mm3 (4.8-10.8) 08/22/18 19:15 RBC 4.37 M/mm3 (4.20-5.40) 08/22/18 19:15 Hgb 13.7 gm/dL (12.0-16.0) 08/22/18 19:15 Hct 40.8 % (36.0-47.0) 08/22/18 19:15 MCV 93.4 fl (81.0-99.0) 08/22/18 19:15 MCH 31.3 pg (27.0-31.0) H 08/22/18 19:15 MCHC 33.5 g/dL (33.0-37.0) 08/22/18 19:15 RDW 14.2 % (11.5-14.5) 08/22/18 19:15 Plt Count 338 K/mm3 (130-400) 08/22/18 19:15 MPV 8.8 fl (7.40-10.4) 08/22/18 19:15 Absolute Neuts (auto) 5.10 K/uL (1.8-6.8) 08/22/18 19:15 Absolute Lymphs (auto) 1.90 K/uL (1.0-3.4) 08/22/18 19:15 Absolute Monos (auto) 0.80 K/uL (0.2-0.8) 08/22/18 19:15 Absolute Eos (auto) 0.40 K/uL (0.0-0.4) 08/22/18 19:15 Absolute Basos (auto) 0.20 K/uL (0.0-0.1) H 08/22/18 19:15 Neutrophils % 61.0 % (42.0-78.0) 08/22/18 19:15 Lymphocytes % 23.4 % (20.0-50.0) 08/22/18 19:15 Monocytes % 9.2 % (2.0-9.0) H 08/22/18 19:15 Eosinophils % 4.5 % (1.0-5.0) 08/22/18 19:15 Basophils % 1.9 % (0.0-2.0) 08/22/18 19:15 Sodium 136 mmol/L (135-145) 08/22/18 19:15 Potassium 4.0 mmol/L (3.6-5.0) 08/22/18 19:15 Chloride 103 mmol/L (101-111) 08/22/18 19:15 Carbon Dioxide 26 mmol/L (21-31) 08/22/18 19:15 Anion Gap 11.0 (12-18) L 08/22/18 19:15 BUN 8 mg/dL (7-18) 08/22/18 19:15 Creatinine 0.84 mg/dL (0.6-1.3) 08/22/18 19:15 BUN/Creatinine Ratio 9.5 (10-20) L 08/22/18 19:15 Random Glucose 86 mg/dL (70-105) 08/22/18 19:15 Serum Osmolality 269.6 mOsm/L (275-295) L 08/22/18 19:15 Lactic Acid 0.8 mmol/L (0.5-2.2) 08/22/18 19:15 Calcium 8.9 mg/dL (8.4-10.2) 08/22/18 19:15 Total Bilirubin 0.7 mg/dL (0.2-1.0) 08/22/18 19:15 AST 18 IU/L (10-42) 08/22/18 19:15 ALT 10 IU/L (10-60) 08/22/18 19:15 Alkaline Phosphatase 89 IU/L (42-121) 08/22/18 19:15 Serum Total Protein 7.4 gm/dL (6.4-8.2) 08/22/18 19:15 Albumin 3.5 g/dl (3.2-5.5) 08/22/18 19:15 Globulin 3.9 gm/dL (2.3-3.5) H 08/22/18 19:15 Albumin/Globulin Ratio 0.9 (1.1-1.9) L 08/22/18 19:15 Lipase 22 U/L (22-51) 08/22/18 19:15 Urine Opiates Screen Positive ng/mL (1999) H 08/22/18 21:05 Urine Barbiturates Negative ng/mL (200) 08/22/18 21:05 Ur Phencyclidine Scrn Negative ng/mL (25) 08/22/18 21:05 U Amphetamin/Meth Scrn Negative ng/mL (1000) 08/22/18 21:05 U Benzodiazepines Scrn Positive ng/mL (200) H 08/22/18 21:05 U Cocaine Metab Screen Negative ng/mL (300) 08/22/18 21:05 U Cannabinoids Screen Negative ng/mL (50) 08/22/18 21:05 Discuss all test result with patient that no acute findings was noted and told her that she might have the viral gastroenteritis - EKG/XRAY/CT XRAY: chest - no acute findings CT Ordered: Yes - no acute process noted-CT abd/Pelvis Departure - Departure Clinical Impression: Viral gastroenteritis Time of Disposition: 22:37 Disposition: Discharge to Home or Self Care Condition: Fair Departure Forms: ED Discharge - Pt. Copy, Patient Portal Self Enrollment Instructions: Viral Gastroenteritis, [place] Diet, Viral Gastroenteritis, Adult ( [place]) Diet: other - AVOID GREASY,SPICY and DAIRY FOODS until BETTER Referrals: SAVANAH BACH [Primary Care Provider] - 1-2 Weeks Home Medications: Ambulatory Orders Gabapentin 100 mg PO TID 08/22/18 HYDROcodone 5MG/APAP 325MG [[place] 5/325] 1 tab PO PRN 08/22/18 Additional Instructions: Continue with all home medications;Return to ER as needed ;Follow up with primary Md 24 August 2018
[2018-08-22] MEDS: LACTATED RINGERS 1,000 ML IVS ONE (19:20)
--- NOTE | 2018-08-22 19:32 | RAD ---
EXAM DESCRIPTION: Chest,1 View CLINICAL HISTORY:48 years Female, fever Comparison: August 15, 2014 FINDINGS: No focal lung consolidation. No pleural effusion. No pneumothorax. Cardiac and mediastinal silhouette is unremarkable. No acute osseous abnormality. Soft tissues are unremarkable. IMPRESSION: No acute findings. No focal lung consolidation. Electronically signed by: Rosas Ferreira MD 08/22/2018 7:08 PM [employer]
[2018-08-22] MEDS: MORPHINE SULFATE INJ 10 MG/ML VIAL IV ONE ×2 (19:45→21:46)
[2018-08-22] MEDS: PROMETHAZINE HCL INJ 25 MG/ML VIAL IM ONE (19:46)
[2018-08-22] MEDS: KETOROLAC TROMETHAMINE INJ 30 MG/ML VIAL IV ONE (20:21)
[2018-08-22] MEDS: SODIUM CHLORIDE 0.9% 1000ML 1,000 ML IVS ONE (21:19)
[2018-08-22] MEDS ORDERED: MORPHINE SULFATE INJ 10 MG/ML VIAL ONE (21:40)
[2018-08-22 21:45] VITALS: O2SAT 98
--- NOTE | 2018-08-22 22:26 | CT ---
EXAM DESCRIPTION: CT ABDOMEN AND PELVIS WITHOUT CONTRAST CLINICAL HISTORY: Central abdominal pain COMPARISON: 07/15/2013 TECHNIQUE: CT of the abdomen and pelvis without IV contrast. Evaluation of the solid organs and vasculature is suboptimal due to lack of IV contrast. DLP: 639.36 mGy-cm FINDINGS: Lung Bases: The visualized lung bases are clear. Bones: No destructive bone lesions identified. Abdomen: Liver: The liver has normal size and density. Gallbladder: The gallbladder is contracted. No definite gallstones identified. Spleen, Pancreas, and Adrenal Glands: The spleen, pancreas, and adrenal glands are unremarkable. Kidneys: The kidneys have normal size and contour without evidence of hydronephrosis. No obstructing ureteral calculi. Vasculature: Aortoiliac atherosclerosis. IVC is unremarkable. Stomach: The stomach and duodenum have normal course. Other: No free intraperitoneal air. No free fluid or lymphadenopathy. Pelvis: Bladder: Urinary bladder is unremarkable. Bowel: No dilated loops of large or small bowel. The transverse and descending colon are decompressed. Appendix: Normal appendix. Pelvis: Prior hysterectomy. IMPRESSION: 1. No acute inflammatory or obstructive process identified. This exam was performed according to our departmental dose-optimization program, which includes automated exposure control, adjustment of the mA and/or kV according to patient size and/or use of iterative reconstruction technique. Electronically signed by: Curly Mohamud 08/22/2018 10:24 PM [employer]INING [employer]OM ATTENDANT [employer]
[2018-08-22 22:36] VITALS: BP 108/73
[2018-08-22 22:47] VITALS: TEMP 99.8
== END 2018-08-22 22:48 | disposition home or self-care (01) ==
LOC: ER 18:32
DX: A08.4 Viral intestinal infection, unspecified (principal); E07.9 Disorder of thyroid, unspecified; Z87.891 Personal history of nicotine dependence
CPT/HCPCS: 36415; 71045; 74176; 80053; 80307; 81001; 83605; 83690; 85025; 87804; J1885; J2270; J2550; J7030; J7120

== ENCOUNTER 2018-10-17 02:27 | Emergency (ER) | payer OTHER ==
[2018-10-17] MEDS ORDERED: SODIUM CHLORIDE 0.9% (FLUSH) 10 ML SYG IV PRN (02:52)
[2018-10-17] MEDS ORDERED: NITROGLYCERIN 0.4 MG 25 EA TAB SL ONE (02:52)
[2018-10-17] MEDS ORDERED: ALUM & MAG HYDROX-SIMETHICONE 30 ML, LIDOCAINE VISCOUS 2% 15 ML PO ONE ×2 (02:55)
[2018-10-17] MEDS ORDERED: ALUM & MAG HYDROX-SIMETHICONE 30 ML UD ONE (02:59)
[2018-10-17] MEDS ORDERED: LIDOCAINE HCL 2% (MOUTH-THROAT) 15 ML UD ONE (02:59)
--- NOTE | 2018-10-17 03:05 | ED.PDOC ---
History of Present Illness - General Chief Complaint: Chest Pain/PA Stated Complaint: chest pain Time Seen by Provider: 10/17/18 02:53 Source: patient Exam Limitations: no limitations - History of Present Illness Initial Comments: patient comes in today with chest pain that started at rest. Patient was laying down when she started experiencing sharp chest pain is substernal area radiating to her left arm with no diaphoresis or shortness of breath. The pain is worse with deep inspiration or movement. Patient has had these pains off and on over the past several months and has never had any workup for them. Patient has a past medical history significant for greater than [id number] history and possible family history with grandparents who had disease in their 50s on both sides. Patient states she's had no cough or congestion. She's had no fever or chills. Patient denies any heartburn or reflux with the exception of today. 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 Patient states she doesn't like how her medications make her feels that she often skips them and this time has been out of her medications for several weeks with the exception of hydrocodone which she took earlier today. Patient is supposed to be on Celexa, Neurontin, propanolol, and hydrocodone. Timing/Duration: 1 hour Severity/Quality: severe, sharp Location: substernal Chest Pain Radiation: arms - left Prior Chest Pain/Cardiac Workup: no prior cardiac workup Improving Factors: nothing Worsening Factors: movement, other - deep inspiration Nitro Today/Relief: no nitro taken today Aspirin Treatment Today: no aspirin today Associated Symptoms: heartburn, nausea/vomiting Allergies/Adverse Reactions: Allergies NO KNOWN ALLERGY Allergy (Verified 03/28/18 17:14) Home Medications: Ambulatory Orders Gabapentin 100 mg PO TID 08/22/18 HYDROcodone 5MG/APAP 325MG [[place] 5/325] 1 tab PO PRN PRN 08/22/18 Celecoxib 200 mg PO DAILY 10/17/18 Duloxetine HCl 120 mg PO DAILY 10/17/18 Gabapentin 300 mg PO DAILY 10/17/18 Promethazine Tab [Phenergan Tablet] 0 mg PO .Q4H PRN 10/17/18 Propranolol HCl 30 mg PO DAILY 10/17/18 Quetiapine Fumarate 200 mg PO DAILY 10/17/18 Review of Systems - Review of Systems Constitutional: States: no symptoms reported. Denies: chills, fever EENTM: States: no symptoms reported. Denies: eye pain, ear pain, ear discharge, nose congestion Respiratory: States: no symptoms reported. Denies: cough, short of breath, wheezing Cardiology: States: see HPI, chest pain Gastrointestinal/Abdominal: States: abdominal pain, nausea. Denies: constipation, diarrhea, vomiting Musculoskeletal: States: no symptoms reported Skin: States: no symptoms reported Past Medical History (General) - Patient Medical History Hx Seizures: No Hx Stroke: No Hx Dementia: No Hx Asthma: No Hx of COPD: No Hx Cardiac Disorders: No Hx Congestive Heart Failure: No Hx Pacemaker: No Hx Hypertension: No Hx Thyroid Disease: Yes Hx Diabetes: No Hx Gastroesophageal Reflux: Yes - Hx hiatal hernia Hx Renal Disease: No Hx Cancer: No Hx of HIV: No Hx Hepatitis C: No Hx MRSA: No - Vaccination History Hx Tetanus, Diphtheria Vaccination: No Hx Influenza Vaccination: Yes Hx Pneumococcal Vaccination: No - Social History Hx Tobacco Use: Yes Hx Chewing Tobacco Use: No Hx Alcohol Use: No Hx Substance Use: - "chemical dependency" Hx Substance Use Treatment: No Hx Depression: No Hx Physical Abuse: No Hx Emotional Abuse: No Hx Suspected Abuse: No - Female History Patient : No Family Medical History - Family History Mother Family History: Unknown Living Status: Hx Cardiac Disease: Yes - sister Hx Family Cancer: Yes - breast w/METS;brother Hx Family;Other: sister -Lupus Physical Exam - Physical Exam General Appearance: Alert, No apparent distress Eyes, Ears, Nose, Throat Exam: PERRL/EOMI, normal ENT inspection, TMs normal, pharynx normal Neck: non-tender, full range of motion, supple, normal inspection Respiratory: chest non-tender, lungs clear, normal breath sounds, no respiratory distress Cardiovascular/Chest: normal peripheral pulses, regular rate, rhythm, no edema, no gallop, no JVD, no murmur, other - reproduction of chest pain with palpation of the sternum and movement during the exam Peripheral Pulses: radial,right: 2+, radial,left: 2+ Gastrointestinal/Abdominal: normal bowel sounds, soft, tenderness - TTP epigastrum with no rebound or guarding no distention Extremity: non-tender, normal inspection Neurologic: alert, oriented x 3 Progress - Results/Orders Results/Orders: 10/17/18 02:52 IV Care:Saline Lock per Protoc QSHIFT Telemetry .ONCE Sodium Chloride 0.9% (Flush) [Saline Flush Syringe] 10 ml IV PRN PRN EKG Stat Pulse Ox Stat 10/17/18 03:00 EKG STAT Laboratory Results WBC 10.7 K/mm3 (4.8-10.8) 10/17/18 02:52 RBC 4.28 M/mm3 (4.20-5.40) 10/17/18 02:52 Hgb 13.5 gm/dL (12.0-16.0) 10/17/18 02:52 Hct 39.7 % (36.0-47.0) 10/17/18 02:52 MCV 92.9 fl (81.0-99.0) 10/17/18 02:52 MCH 31.7 pg (27.0-31.0) H 10/17/18 02:52 MCHC 34.1 g/dL (33.0-37.0) 10/17/18 02:52 RDW 14.4 % (11.5-14.5) 10/17/18 02:52 Plt Count 322 K/mm3 (130-400) 10/17/18 02:52 MPV 9.2 fl (7.40-10.4) 10/17/18 02:52 Absolute Neuts (auto) 7.40 K/uL (1.8-6.8) H 10/17/18 02:52 Absolute Lymphs (auto) 2.20 K/uL (1.0-3.4) 10/17/18 02:52 Absolute Monos (auto) 0.50 K/uL (0.2-0.8) 10/17/18 02:52 Absolute Eos (auto) 0.50 K/uL (0.0-0.4) H 10/17/18 02:52 Absolute Basos (auto) 0.10 K/uL (0.0-0.1) 10/17/18 02:52 Neutrophils % 69.3 % (42.0-78.0) 10/17/18 02:52 Lymphocytes % 20.1 % (20.0-50.0) 10/17/18 02:52 Monocytes % 4.8 % (2.0-9.0) 10/17/18 02:52 Eosinophils % 4.5 % (1.0-5.0) 10/17/18 02:52 Basophils % 1.3 % (0.0-2.0) 10/17/18 02:52 PT 10.4 SECONDS (9.0-10.9) 10/17/18 02:52 INR 1.04 (0.9-1.15) 10/17/18 02:52 PTT (SP) 38.3 SECONDS (21.8-31.6) H 10/17/18 02:52 D-Dimer, Quantitative 0.27 mg/L FEU (0-0.49) 10/17/18 02:54 Sodium 137 mmol/L (135-145) 10/17/18 02:52 Potassium 3.4 mmol/L (3.6-5.0) L 10/17/18 02:52 Chloride 102 mmol/L (101-111) 10/17/18 02:52 Carbon Dioxide 28 mmol/L (21-31) 10/17/18 02:52 Anion Gap 10.4 (12-18) L 10/17/18 02:52 BUN 6 mg/dL (7-18) L 10/17/18 02:52 Creatinine 0.75 mg/dL (0.6-1.3) 10/17/18 02:52 BUN/Creatinine Ratio 8.0 (10-20) L 10/17/18 02:52 Random Glucose 80 mg/dL (70-105) 10/17/18 02:52 Serum Osmolality 270.4 mOsm/L (275-295) L 10/17/18 02:52 Calcium 8.7 mg/dL (8.4-10.2) 10/17/18 02:52 Magnesium 1.7 mg/dL (1.8-2.5) L 10/17/18 02:52 Creatine Kinase 31 IU/L (26-140) 10/17/18 02:52 CK-MB (CK-2) 0.4 ng/mL (0.0-4.4) 10/17/18 02:52 CK-MB (CK-2) % Not Reportable 10/17/18 02:52 Troponin I < 0.02 ng/mL (0.01-0.05) 10/17/18 02:52 B-Natriuretic Peptide 8.7 pg/ml (0-100) 10/17/18 02:52 Amylase 65 U/L (28-100) 10/17/18 02:52 Lipase 41 U/L (22-51) 10/17/18 02:52 chest x ray: no acute cardiopulmonary process second troponin I <.02 - EKG/XRAY/CT EKG: Sinus, no ST T wave changes, Unchanged from - 08/13/2014 Comments: HR of 82 with normal axis Departure - Departure Clinical Impression: Muscular chest pain Disposition: Discharge to Home or Self Care Condition: Good Departure Forms: ED Discharge - Pt. Copy, Patient Portal Self Enrollment Instructions: DI for Chest Pain Referrals: SAVANAH BACH [Primary Care Provider] - 1-2 Weeks Home Medications: Ambulatory Orders Gabapentin 100 mg PO TID 08/22/18 HYDROcodone 5MG/APAP 325MG [[place] 5/325] 1 tab PO PRN PRN 08/22/18 Celecoxib 200 mg PO DAILY 10/17/18 Duloxetine HCl 120 mg PO DAILY 10/17/18 Gabapentin 300 mg PO DAILY 10/17/18 Promethazine Tab [Phenergan Tablet] 0 mg PO .Q4H PRN 10/17/18 Propranolol HCl 30 mg PO DAILY 10/17/18 Quetiapine Fumarate 200 mg PO DAILY 10/17/18 Additional Instructions: follow up in 2-3 days with PCP, fill Neurontin and take as prescribed. OTC IBU and Tylenol for the pain
[2018-10-17] MEDS ORDERED: KETOROLAC TROMETHAMINE INJ 30 MG/ML VIAL IV ONE (03:13)
[2018-10-17] MEDS ORDERED: ONDANSETRON INJ 4 MG/2 ML VIAL IV ONE (03:13)
--- NOTE | 2018-10-17 03:35 | RAD ---
EXAM DESCRIPTION: Chest,1 View CLINICAL HISTORY: 48 years Female, chest pain COMPARISON: Chest x-ray August 22, 2018 FINDINGS: No consolidation. No pneumothorax. No significant pleural effusion. Cardiomediastinal silhouette is unremarkable. Osseous structures are unremarkable. IMPRESSION: No acute findings. Electronically signed by: Yovany Cai MD 10/17/2018 3:34 AM REGISTERED NURSE CARDIAC
[2018-10-17] MEDS ORDERED: MORPHINE SULFATE INJ 10 MG/ML VIAL IV ONE (03:39)
[2018-10-17] MEDS ORDERED: SODIUM CHLORIDE 0.9% 1000ML 1,000 ML IVS ONE (03:40)
[2018-10-17] MEDS ORDERED: SODIUM CHLORIDE 0.9% 1000ML 1,000 ML ONE (03:40)
[2018-10-17] MEDS: ONDANSETRON INJ 4 MG/2 ML VIAL IV ONE ×2 (04:55→05:00)
[2018-10-17 05:48] VITALS: O2SAT 95
[2018-10-17 06:22] VITALS: TEMP 97.6
[2018-10-17 06:25] VITALS: BP 85/54
== END 2018-10-17 06:13 | disposition home or self-care (01) ==
LOC: ER 02:27
DX: R07.89 Other chest pain (principal); R11.2 Nausea with vomiting, unspecified; R12 Heartburn; G89.4 Chronic pain syndrome; E07.9 Disorder of thyroid, unspecified; K21.9 Gastro-esophageal reflux disease without esophagitis; Z87.891 Personal history of nicotine dependence; Z79.899 Other long term (current) drug therapy
CPT/HCPCS: 36415; 71045; 80048; 82150; 82550; 82553; 83690; 83880; 84484; 85025; 85379; 85610; 85730; 93005; J1885; J2270; J2405; J7030

== ENCOUNTER → 2018-10-29 | Outpatient (CLI) | payer MEDICARE, OTHER ==
--- NOTE | 2018-10-29 21:10 | MRI ---
EXAM DESCRIPTION: Cervical Spine: MRI. CLINICAL HISTORY: 48 years Female NECK PAIN RADIATING DOWN LEFT ARM COMPARISON: Radiographs of the thoracic spine on the same visit. TECHNIQUE: Multiplanar, high-field MRI, multiple sequences, non-contrast Cervical spine. FINDINGS: C5-C6: Disc desiccation and minimal disc space loss. Posterior broad-based disc bulge abutting the cord. Bilateral uncinate spurs. Posterior hypertrophy ligaments. Mild canal stenosis. Borderline left neural foraminal stenosis with minimal facet arthrosis. C6-C7: Disc desiccation and minimal disc space loss. Posterior broad-based disc bulge 2 mm not touching the cord. Bilateral uncinate spurs with mild neural foraminal narrowing. Canal is patent. Normal signal in the remaining discs with no bulging. Disc spaces preserved. Canal and neural foramina are patent. Facet joints are unremarkable. Spinal alignment showing decreased lordosis. No obvious spondylolisthesis.. No cord compression or cord edema. Atlantoaxial joint minimal hypertrophy posteriorly abutting the anterior canal ligaments.. Base of the cerebellar tonsils is at the level of the foramen magnum. Paravertebral soft tissues are negative. Vertebral bodies are not compressed at any level. Otherwise normal marrow signal in the remaining vertebral bodies and the posterior elements. IMPRESSION: 1. C5-6 disc desiccation and disc bulge abutting the cord. Hypertrophy of the posterior ligaments. Borderline mild canal stenosis. Borderline left neural foraminal stenosis. Correlate for left C6 radiculopathy. 2. C6-C7 disc bulge posteriorly not touching the cord. Mild neural foraminal narrowing bilaterally. Canal is patent. Electronically signed by: Larry Rees MD 10/29/2018 9:08 PM [facility]
--- NOTE | 2018-10-30 08:03 | MRI ---
EXAM DESCRIPTION: Thoracic Spine w/o Contrast: Magnetic Resonance Imaging. CLINICAL HISTORY: NECK PAIN RADIATING DOWN LEFT ARM COMPARISON: MRI scan of the cervical spine on the same visit. TECHNIQUE: Multiplanar, multiple standard sequences, non contrast MRI, thoracic spine. FINDINGS: T11-12 disc is desiccated and disc space loss anterior. Posterior right paracentral bulge 3 mm abutting the cord. Mild canal narrowing to the right of midline bilateral foramina are patent. Posterior ligaments and facets are unremarkable. Hyperintense T2 signal in the central canal of the cord beginning at the T5-6 level extending down to the conus but most noticeable from the T10-T11 disc space level to the conus, which terminates just below the T12-L1 disc space level. No marked cord compression. Desiccation of the T6-T7 disc. Left paracentral bulge 3 to 4 mm abutting the thecal sac and encroaching on the left neural foramen. No canal or neural foraminal stenosis no narrowing on the right. Posterior elements unremarkable. Remaining discs demonstrate normal signal. Disc spaces are preserved. Canal and foramina are patent. No scoliosis. Facet joints are unremarkable. Cord with normal signal, no compression at other levels. Paravertebral soft tissues are unremarkable. Normal marrow signal in the remaining vertebral bodies and the posterior elements. Vertebral bodies are not compressed at any level. IMPRESSION: 1. 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 Also noticeable but less dilated from T5-6 to T10-11. Right paracentral T11-T12 focal disc bulge or small protrusion abutting the cord. No extra dural or extra medullary mass is seen. No cord widening. Consider follow-up MRI thoracic spine evaluation with gadolinium contrast. 2. Desiccation of the T6-T7 disc. Left paracentral bulge 3 to 4 mm which may be abutting the left T6 nerve. Correlate for radiculopathy. Electronically signed by: Larry Rees MD 10/30/2018 8:01 AM [employer]
== END ==
LOC: MRI 13:00
PROVIDERS: ATTEND Orthopaedic Surgery Orthopaedic Surgery of the Spine
DX: M79.602 Pain in left arm (principal); G95.0 Syringomyelia and syringobulbia; M51.84 Other intervertebral disc disorders, thoracic region; M50.922 Unspecified cervical disc disorder at C5-C6 level; M50.923 Unspecified cervical disc disorder at C6-C7 level

== ENCOUNTER 2018-11-13 10:49 | Emergency (ER) | payer OTHER ==
[2018-11-13] MEDS ORDERED: HYDROmorphone HCL INJ 2 MG/ML VIAL IM ONE (11:20)
[2018-11-13] MEDS ORDERED: ONDANSETRON INJ 4 MG/2 ML VIAL IM ONE (11:20)
--- NOTE | 2018-11-13 11:25 | ED.PDOC ---
History of Present Illness - General Chief Complaint: Back Pain or Injury Stated Complaint: Pt fell at home and exacerbatered back issue Time Seen by Provider: 11/13/18 11:16 Source: patient - History of Present Illness Initial Comments: THE PATIENT COMES TO THE ED WITH ACUTE EXACERBATION OF CHRONIC CERVICAL AND LUMBAR SPINE PAIN. SHE IS ON PAIN MANAGEMENT WITH DR. BACH. SHE WAS EVALUATED BY NEUROSURGEON IN [place] TODAY AND ACORDING TO THE PATIENT WILL BE SCHEDULED FOR SPINAL SURGERY WITHIN TWO WEEKS. SHE VOICES THAT WHILE AT HOME SHE HAD AN ALMOST FALL AND RE-INJURED HER LUMBAR AREA. SHE IS HERE REQUESTING PAIN MEDICINE. Timing/Duration: constant Quality/Severity: moderate Back Pain Location: C-spine, lumbar spine Method of Injury/Prior Injury: twisted Improving Factors: nothing Worsening Factors: nothing Associated Symptoms: denies symptoms Allergies/Adverse Reactions: Allergies NO KNOWN ALLERGY Allergy (Verified 11/13/18 11:04) Home Medications: Ambulatory Orders Gabapentin 100 mg PO TID 08/22/18 HYDROcodone 5MG/APAP 325MG [[place] 5/325] 1 tab PO PRN PRN 08/22/18 Celecoxib 200 mg PO DAILY 10/17/18 Promethazine Tab [Phenergan Tablet] 0 mg PO .Q4H PRN 10/17/18 Cyclobenzaprine HCl [Flexeril] 10 mg PO TID 11/13/18 Review of Systems - Review of Systems Constitutional: States: no symptoms reported EENTM: States: no symptoms reported Respiratory: States: no symptoms reported Cardiology: States: no symptoms reported Gastrointestinal/Abdominal: States: no symptoms reported Genitourinary: States: no symptoms reported Musculoskeletal: States: back pain, joint pain, muscle pain, neck pain Skin: States: no symptoms reported Neurological: States: depressed Endocrine: States: no symptoms reported Hematologic/Lymphatic: States: no symptoms reported Past Medical History (General) - Patient Medical History Hx Seizures: No Hx Stroke: No Hx Dementia: No Hx Asthma: No Hx of COPD: No Hx Cardiac Disorders: No Hx Congestive Heart Failure: No Hx Pacemaker: No Hx Hypertension: No Hx Thyroid Disease: Yes Hx Diabetes: No Hx Gastroesophageal Reflux: Yes - Hx hiatal hernia Hx Renal Disease: No Hx Cancer: No Hx of HIV: No Hx Hepatitis C: No Hx MRSA: No Surgical History: tonsillectomy, Hysterectomy, other - Vaccination History Hx Tetanus, Diphtheria Vaccination: Yes Hx Influenza Vaccination: Yes Hx Pneumococcal Vaccination: Yes Immunizations Up to Date: Yes - Social History Hx Tobacco Use: Yes Hx Chewing Tobacco Use: No Hx Alcohol Use: No Hx Substance Use: No Hx Substance Use Treatment: No Hx Depression: No Hx Physical Abuse: No Hx Emotional Abuse: No Hx Suspected Abuse: No - Female History Patient is a Female of Child Bearing Age (10 -59 yrs old): Yes Patient : No Family Medical History - Family History Mother Family History: Unknown Living Status: Hx Cardiac Disease: Yes - sister Hx Family Cancer: Yes - breast w/METS;brother Hx Family;Other: sister -Lupus Physical Exam - Physical Exam General Appearance: Alert, Obvious distress, Well Developed, Well Groomed, Well Hydrated, Well Nourished Eyes, Ears, Nose, Throat Exam: normal ENT inspection Neck Exam: non-tender, full range of motion, painful range of motion Cardiovascular/Respiratory: regular rate, rhythm, no M/R/G, normal peripheral pulses, no JVD Peripheral Pulses: radial,right: 2+, radial,left: 2+ Gastrointestinal/Abdominal: normal bowel sounds, non tender, soft, no organomegaly Back Exam: muscle spasm Extremity Exam: no evidence of injury, normal range of motion Neurologic: no motor/sensory deficits, normal mood/affect, oriented x 3 Skin Exam: normal color Departure - Departure Clinical Impression: Neck pain Back pain Qualifiers: Back pain location: low back pain Chronicity: chronic Back pain laterality: bilateral Sciatica presence: without sciatica Qualified Code(s): M54.5 - Low back pain; G89.29 - Other chronic pain Time of Disposition: 11:29 Disposition: Discharge to Home or Self Care Condition: Fair Departure Forms: ED Discharge - Pt. Copy, Patient Portal Self Enrollment Diet: resume usual diet Home Medications: Ambulatory Orders Gabapentin 100 mg PO TID 08/22/18 HYDROcodone 5MG/APAP 325MG [[place] 5/325] 1 tab PO PRN PRN 08/22/18 Celecoxib 200 mg PO DAILY 10/17/18 Promethazine Tab [Phenergan Tablet] 0 mg PO .Q4H PRN 10/17/18 Cyclobenzaprine HCl [Flexeril] 10 mg PO TID 11/13/18 Additional Instructions: CONTINUE HOME MEDS, FOLLOW UP WITH DR. BACH ONE WEEK.
[2018-11-13] MEDS ORDERED: ONDANSETRON INJ 4 MG/2 ML VIAL IV ONE (11:27)
[2018-11-13] MEDS ORDERED: HYDROmorphone HCL INJ 2 MG/ML VIAL IV ONE (11:28)
[2018-11-13 11:56] VITALS: BP 113/77; TEMP 97.4; O2SAT 86
== END 2018-11-13 11:59 | disposition home or self-care (01) ==
LOC: ER 10:49
DX: M54.2 Cervicalgia (principal); M54.5 Low back pain; G89.29 Other chronic pain; E07.9 Disorder of thyroid, unspecified; Z87.891 Personal history of nicotine dependence; Z79.899 Other long term (current) drug therapy
CPT/HCPCS: J1170; J2405

== ENCOUNTER 2018-11-15 15:03 | Emergency (ER) | payer OTHER ==
[2018-11-15] MEDS ORDERED: MORPHINE SULFATE INJ 10 MG/ML VIAL IV ONE ×2 (15:29→16:28)
[2018-11-15] MEDS ORDERED: ONDANSETRON INJ 4 MG/2 ML VIAL IV ONE (15:29)
[2018-11-15 15:34] VITALS: TEMP 97.6
--- NOTE | 2018-11-15 16:15 | RAD ---
LUMBAR SPINE 11/15/2018 CLINICAL HISTORY: Pain after fall COMPARISON: MRI lumbar spine 04/23/2018 TECHNIQUE: AP, lateral, and spot views of the lumbar spine. FINDINGS: There is flattening of lumbar lordosis. Vertebral body and intervertebral disc space height are within normal limits. Very mild hypertrophic endplate changes are seen within the lumbar spine. The pedicles appear intact. There are five nonrib-bearing lumbar vertebral body segments. Image portions of the sacrum and iliac bones appear normal. Bowel gas pattern throughout the abdomen and pelvis appears normal. Vascular calcifications are seen within the pelvis. Mild aortic atherosclerosis. IMPRESSION: 1. Lumbar muscle spasm. No acute finding. 2. Atherosclerotic disease. Electronically signed by: Jessica Baird DO 11/15/2018 4:12 PM [facility]
[2018-11-15 16:18] VITALS: O2SAT 97
--- NOTE | 2018-11-15 16:19 | CT ---
CT HEAD WITHOUT CONTRAST 11/15/2018 CLINICAL HISTORY: Pain after fall COMPARISON: CT head without contrast 07/25/2018 TECHNIQUE: Axial [address] imaging of the brain. Reformatted coronal and sagittal images obtained. This examination was performed according to our departmental dose optimization program, which includes automated exposure control, adjustment of the mA and/or kV according to patient size and/or use of iterative reconstruction technique. FINDINGS: The ventricles and extra-axial fluid spaces are normal. There is no intracranial hemorrhage. No mass or midline shift. No edema. No acute infarction evident. No hyperdense vessel. Dystrophic calcification within the left basal ganglia noted. Normal cerebellum, vermis, fourth ventricle. Normal sellar contents. Dystrophic pineal calcification are present. Normal appearance of the globes and remaining intraorbital contents. Mild coastal thickening within the ethmoid air cells. Mastoid air cells are clear bilaterally. Intact skull base. Intact calvarium. Unremarkable scalp soft tissues. Imaged portions of the facial bones appear intact. IMPRESSION: 1. No intracranial acute finding. No skull fracture. Electronically signed by: Jessica Baird DO 11/15/2018 4:16 PM [facility]
--- NOTE | 2018-11-15 16:22 | CT ---
PROCEDURE: CT Cervical Spine Without Intravenous Contrast CLINICAL INDICATION: The patient is 48 years old and is Female; fall TECHNIQUE: Axial computed tomography images of the cervical spine without intravenous contrast. Sagittal and coronal reformatted images were created and reviewed. This exam was performed according to our departmental dose-optimization program, which includes automated exposure control, adjustment of the mA and/or kV according to patient size and/or use of iterative reconstruction technique. COMPARISON: MRI cervical spine from 10/29/2018 FINDINGS: VERTEBRAE: No fracture or malalignment identified in the cervical spine. There is mild cervical spondylosis and discogenic degenerative change particularly at C5-C6 and C6-C7. The lateral masses of C1 are normal with respect to C2. The dens is intact. DISCS/SPINAL CANAL/NEURAL FORAMINA: Cervical straightening is present, which may be due to degenerative changes, cervical collar placement, positioning, muscular spasm or ligamentous injury. There is C6-C7 bilateral degenerative zygoapophyseal and uncovertebral hypertrophy. No spinal canal stenosis. OTHER BONES/JOINTS: The visualized skull base is without fracture. SOFT TISSUES: No prevertebral soft tissue hematoma identified. MASTOID AIR CELLS: The inferior mastoid air cells are clear. LUNG APICES: There is biapical pleuroparenchymal scarring. There is a pulmonary bleb medially at the LEFT lung apex. IMPRESSION: No fracture or malalignment identified in the cervical spine. Electronically signed by: Kolby Pena MD 11/15/2018 4:18 PM DIRECTORY CLERK
--- NOTE | 2018-11-15 16:28 | ED.PDOC ---
History of Present Illness - General Chief Complaint: Trauma Stated Complaint: fell, hit head and landed on back Time Seen by Provider: 11/15/18 15:28 Source: patient, RN notes reviewed, Vital Signs reviewed, family, EMS Exam Limitations: no limitations - History of Present Illness Initial Comments: She was walking with her spouse when she fell to the floor & struck her head on an end table Occurred: just prior to arrival Severity: moderate Pain Location: head, neck, back - neck pain is chronic Method of Injury: fall Improving Factors: immobilization Worsening Factors: movement Loss of Consciousness: no loss of consciousness Associated Symptoms (Fall): trouble walking Allergies/Adverse Reactions: Allergies NO KNOWN ALLERGY Allergy (Verified 11/13/18 11:04) Home Medications: Ambulatory Orders Gabapentin 300 mg PO TID 08/22/18 HYDROcodone 5MG/APAP 325MG [[place] 5/325] 1 tab PO PRN PRN 08/22/18 Celecoxib 200 mg PO BID 10/17/18 DULoxetine HCL [Cymbalta] 20 mg PO DAILY 11/15/18 Propranolol HCl 30 mg PO TID 11/15/18 Quetiapine Fumarate [Seroquel Xr] 200 mg PO DAILY 11/15/18 Review of Systems - Review of Systems Constitutional: States: see HPI EENTM: States: no symptoms reported Respiratory: States: no symptoms reported Cardiology: States: no symptoms reported Gastrointestinal/Abdominal: States: no symptoms reported Genitourinary: States: no symptoms reported Musculoskeletal: States: see HPI, back pain, neck pain Skin: States: no symptoms reported Neurological: States: see HPI, headache, other - no loss of consciousness Hematologic/Lymphatic: States: no symptoms reported Past Medical History (General) - Patient Medical History Hx Seizures: No Hx Stroke: No Hx Dementia: No Hx Asthma: No Hx of COPD: No Hx Cardiac Disorders: No Hx Congestive Heart Failure: No Hx Pacemaker: No Hx Hypertension: No Hx Thyroid Disease: No Hx Diabetes: No Hx Gastroesophageal Reflux: Yes - Hx hiatal hernia Hx Renal Disease: No Hx Cancer: No Hx of HIV: No Hx Hepatitis C: No Hx MRSA: No Surgical History: no surgical history - Vaccination History Hx Tetanus, Diphtheria Vaccination: Yes Hx Influenza Vaccination: Yes Hx Pneumococcal Vaccination: Yes Immunizations Up to Date: Yes - Social History Hx Tobacco Use: Yes Hx Chewing Tobacco Use: No Hx Alcohol Use: No Hx Substance Use: No Hx Substance Use Treatment: No Hx Depression: No Hx Physical Abuse: No Hx Emotional Abuse: No Hx Suspected Abuse: No - Female History Patient is a Female of Child Bearing Age (10 -59 yrs old): Yes Patient : No - Triage Comment ED Triage Comment: family arrived to bs. Family Medical History - Family History Mother Family History: Unknown Living Status: Hx Cardiac Disease: Yes - sister Hx Family Cancer: Yes - breast w/METS;brother Hx Family;Other: sister -Lupus Physical Exam - Physical Exam General Appearance: Alert, No apparent distress, Ill Appearing Head Injury: no evidence of injury Eye Exam: bilateral normal ENT Exam: hearing grossly normal, no dental injury Neck Exam: normal inspection, tender lateral, other - c-collar Cardiovascular/Respiratory: regular rate, rhythm Gastrointestinal/Abdominal: non tender, soft, no organomegaly Back Exam: normal inspection, no CVA tenderness, no vertebral tenderness, other - right lower lateral diffuse pain Extremity Exam: no evidence of injury Neurologic: no motor/sensory deficits, alert, normal mood/affect, oriented x 3 Skin Exam: normal color, warm/dry - [place] Coma Score [place] Total: 15 Progress - Results/Orders Results/Orders: 48 yo female with chronic neck pain presents after a ground level fall striking her head. No loss of consciousness. CT & XR reveal no acute processes. She has neurosurg appt this week. Home with C-collar at her request. - EKG/XRAY/CT CT Ordered: Yes - neg brain & neck CTs for acute injury Departure - Departure Clinical Impression: Contusion of scalp Qualifiers: Encounter type: initial encounter Qualified Code(s): S00.03XA - Contusion of scalp, initial encounter Lumbar back pain Qualifiers: Chronicity: acute Back pain laterality: left Sciatica presence: without sciatica Qualified Code(s): M54.5 - Low back pain Time of Disposition: 16:27 Disposition: Discharge to Home or Self Care Condition: Good Departure Forms: ED Discharge - Pt. Copy, Patient Portal Self Enrollment Instructions: DI for Trauma Referrals: SAVANAH BACH [Primary Care Provider] - 1-2 Days Home Medications: Ambulatory Orders Gabapentin 300 mg PO TID 08/22/18 HYDROcodone 5MG/APAP 325MG [[place] 5/325] 1 tab PO PRN PRN 08/22/18 Celecoxib 200 mg PO BID 10/17/18 DULoxetine HCL [Cymbalta] 20 mg PO DAILY 11/15/18 Propranolol HCl 30 mg PO TID 11/15/18 Quetiapine Fumarate [Seroquel Xr] 200 mg PO DAILY 11/15/18
[2018-11-15 17:00] VITALS: BP 113/82
== END 2018-11-15 16:58 | disposition home or self-care (01) ==
LOC: ER 15:03
DX: S00.03XA Contusion of scalp, initial encounter (principal); M54.5 Low back pain; M54.2 Cervicalgia; G89.29 Other chronic pain; Z87.891 Personal history of nicotine dependence; W01.190A Fall on same level from slipping, tripping and stumbling with subsequent striking against furniture, initial encounter; Y93.01 Activity, walking, marching and hiking; Y92.9 Unspecified place or not applicable
CPT/HCPCS: 36415; 70450; 72100; 72125; 84703; J2270; J2405

== ENCOUNTER 2019-03-05 12:41 | Emergency (ER) | payer OTHER ==
[2019-03-05 12:56] VITALS: TEMP 98.4; O2SAT 98
[2019-03-05] MEDS ORDERED: PROMETHAZINE HCL INJ 25 MG/ML VIAL IM ONE (13:03)
[2019-03-05] MEDS ORDERED: KETOROLAC TROMETHAMINE INJ 30 MG/ML VIAL IM ONE (13:03)
--- NOTE | 2019-03-05 13:08 | ED.PDOC ---
History of Present Illness - General Chief Complaint: General Stated Complaint: left shoulder pain Time Seen by Provider: 03/05/19 13:03 Source: patient - History of Present Illness Initial Comments: SHE SUFFERS OF CHRONIC LEFT SHOULDER PAIN. IS UNDER THE CARE OF A SHOULDER PHYSICIAN IN [place]. TWO DAYS AGO RECEIVED SOME INJECTIONS AT THREE TRIGGER POINTS ON THE LEFT SHOULDER AREA. SHE HAS HAD AN MRI OF THE SHOULDER THAT REVEALED A SUPERIOR LABRAL TEAR. SHE IS STILL HURTING. 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 Timing/Duration: 1 week Severity: moderate Improving Factors: nothing Worsening Factors: movement Associated Symptoms: nausea/vomiting Allergies/Adverse Reactions: Allergies NO KNOWN ALLERGY Allergy (Verified 11/13/18 11:04) Home Medications: Ambulatory Orders Baclofen 20 mg PO BID #14 tab 02/10/19 Tramadol HCl 50 mg PO Q4HR #14 tab 02/10/19 Naproxen [Naprosyn] 500 mg PO BID #14 tab 03/05/19 Review of Systems - Review of Systems Constitutional: States: no symptoms reported EENTM: States: no symptoms reported Respiratory: States: no symptoms reported Cardiology: States: no symptoms reported Gastrointestinal/Abdominal: States: no symptoms reported Genitourinary: States: no symptoms reported Musculoskeletal: States: joint pain, muscle pain, muscle stiffness Neurological: States: no symptoms reported Endocrine: States: no symptoms reported Hematologic/Lymphatic: States: no symptoms reported Past Medical History (General) - Patient Medical History Hx Seizures: No Hx Stroke: No Hx Dementia: No Hx Asthma: No Hx of COPD: No Hx Cardiac Disorders: No Hx Congestive Heart Failure: No Hx Pacemaker: No Hx Hypertension: No Hx Thyroid Disease: No Hx Diabetes: No Hx Gastroesophageal Reflux: Yes - Hx hiatal hernia Hx Renal Disease: No Hx Cancer: No Hx of HIV: No Hx Hepatitis C: No Hx MRSA: No Hx Other - free text: HAS HAD RECENT NECK SURGERY- ANTERIOR APPROACH Surgical History: Hysterectomy - Vaccination History Hx Tetanus, Diphtheria Vaccination: Yes Hx Influenza Vaccination: Yes Hx Pneumococcal Vaccination: Yes - Social History Hx Tobacco Use: Yes Hx Chewing Tobacco Use: No Hx Alcohol Use: No Hx Substance Use: No Hx Substance Use Treatment: No Hx Depression: No Hx Physical Abuse: No Hx Emotional Abuse: No Hx Suspected Abuse: No - Female History Patient : No Family Medical History - Family History Mother Family History: Unknown Living Status: Hx Cardiac Disease: Yes - sister Hx Family Cancer: Yes - breast w/METS;brother Hx Family;Other: sister -Lupus Physical Exam - Physical Exam General Appearance: Alert, Well Hydrated, Other - MODERATE DISTRESS Eye Exam: bilateral normal Ears, Nose, Throat: hearing grossly normal, normal ENT inspection Neck: non-tender, full range of motion, supple, other - SCAR ON THE LEFT ANTERIOR NECK AREA Respiratory: chest non-tender, lungs clear, normal breath sounds, no respiratory distress Cardiovascular/Chest: normal peripheral pulses, regular rate, rhythm, no edema, no gallop Peripheral Pulses: radial,right: 2+, radial,left: 2+ Gastrointestinal/Abdominal: normal bowel sounds, non tender, soft Rectal Exam: deferred Back Exam: normal inspection Extremity: other - LEFT ARM IMOBILZED WITH AN ARM SLING Neurologic: emt paramedic II-XII nml as tested, no motor/sensory deficits, alert Skin Exam: normal color Departure - Departure Clinical Impression: Labral tear of shoulder Qualifiers: Encounter type: subsequent encounter Laterality: left Qualified Code(s): S43.432D - Superior glenoid labrum lesion of left shoulder, subsequent encounter Time of Disposition: 13:15 Disposition: Discharge to Home or Self Care Departure Forms: ED Discharge - Pt. Copy, Patient Portal Self Enrollment Diet: resume usual diet Activity: increase activity as tolerated Referrals: SAVANAH BACH [Primary Care Provider] - 1-2 Weeks Prescriptions: Naproxen [Naprosyn] 500 mg PO BID #14 tab Home Medications: Ambulatory Orders Baclofen 20 mg PO BID #14 tab 02/10/19 Tramadol HCl 50 mg PO Q4HR #14 tab 02/10/19 Naproxen [Naprosyn] 500 mg PO BID #14 tab 03/05/19
[2019-03-05 14:01] VITALS: BP 116/85
== END 2019-03-05 14:03 | disposition home or self-care (01) ==
LOC: ER 12:41
DX: S43.432D Superior glenoid labrum lesion of left shoulder, subsequent encounter (principal); Z87.891 Personal history of nicotine dependence
CPT/HCPCS: J1885; J2550

== ENCOUNTER 2019-03-13 | Emergency (ER) | payer OTHER | END 2019-03-13 16:46 | disposition home or self-care (01) | CPT/HCPCS: J1885; J2550 ==

== ENCOUNTER 2019-03-31 18:59 | Emergency (ER) | payer OTHER ==
--- NOTE | 2019-03-31 20:13 | ED.PDOC ---
History of Present Illness - General Chief Complaint: Upper Extremity Injury Stated Complaint: left shoulder pain, hasn't found pain mngmt doctor Time Seen by Provider: 03/31/19 20:10 Source: patient Exam Limitations: no limitations - History of Present Illness Initial Comments: PT C/O PAIN TO L POST SHOULDER ASPECT. HAS HAD PAIN FOR 2 YEARS. STATES SHE HAS A SURGEON BUT CAN'T HAVE SURGERY UNTIL SHE GETS A PAIN MEDICATION PHYSICIAN. C/O PAIN INCREASING PAST 2 DAYS. NO TRAUMA NO NEW SX'S. SAME FOR PAST 2 YEARS. Occurred: other - 2 YEARS Pain - Upper Extremity: moderate: Shoulder, left Improving Factors: immobilization Worsening Factors: movement Allergies/Adverse Reactions: Allergies NO KNOWN ALLERGY Allergy (Verified 03/31/19 19:45) Home Medications: Ambulatory Orders Duloxetine HCl 60 mg PO DAILY 03/13/19 Metaxalone 400 mg PO TID PRN 03/13/19 Promethazine Tab [Phenergan Tablet] 50 mg PO .Q4H PRN #30 tab 03/13/19 Propranolol HCl [Inderal] 20 mg PO DAILY 03/13/19 Quetiapine Fumarate 200 mg PO BEDTIME 03/13/19 Cyclobenzaprine HCl [Flexeril] 10 mg PO TID PRN #15 tab 03/31/19 Indomethacin 50 mg PO TID PRN #14 cap 03/31/19 Review of Systems - Review of Systems Constitutional: Denies: chills, fever EENTM: States: no symptoms reported Respiratory: Denies: short of breath Gastrointestinal/Abdominal: Denies: nausea, vomiting Musculoskeletal: States: back pain - L POST THORAX. Denies: neck pain Skin: States: no symptoms reported Neurological: Denies: numbness, weakness Endocrine: States: no symptoms reported Hematologic/Lymphatic: States: no symptoms reported Past Medical History (General) - Patient Medical History Hx Seizures: No Hx Stroke: No Hx Dementia: No Hx Asthma: No Hx of COPD: No Hx Cardiac Disorders: No Hx Congestive Heart Failure: No Hx Pacemaker: No Hx Hypertension: No Hx Thyroid Disease: No Hx Diabetes: No Hx Gastroesophageal Reflux: Yes - Hx hiatal hernia Hx Renal Disease: No Hx Cancer: No Hx of HIV: No Hx Hepatitis C: No Hx MRSA: No Surgical History: Hysterectomy - Vaccination History Hx Tetanus, Diphtheria Vaccination: Yes Hx Influenza Vaccination: Yes Hx Pneumococcal Vaccination: Yes - Social History Hx Tobacco Use: Yes Hx Chewing Tobacco Use: No Hx Alcohol Use: No Hx Substance Use: No Hx Substance Use Treatment: No Hx Depression: No Hx Physical Abuse: No Hx Emotional Abuse: No Hx Suspected Abuse: No - Female History Patient : No Family Medical History - Family History Mother Family History: Unknown Living Status: Hx Cardiac Disease: Yes - sister Hx Family Cancer: Yes - breast w/METS;brother Hx Family;Other: sister -Lupus Physical Exam - Physical Exam General Appearance: Alert, No apparent distress Eyes, Ears, Nose, Throat Exam: PERRL/EOMI, normal ENT inspection Neck: full range of motion, supple, normal inspection Cardiovascular/Respiratory: regular rate, rhythm, no M/R/G Back Exam: normal inspection, no CVA tenderness, no vertebral tenderness, other - MILD TTP L POST THORAX NO BONY ABN, NO SPASM, Shoulder Exam: normal inspection, non-tender - NO ROTATOR CUFF TENDERNESS OR WEAKNESS, no evidence of injury, normal ROM Neuro/Tendon: normal sensation, normal motor functions, normal tendon functions Mental Status: alert Skin Exam: normal color, warm/dry Departure - Departure Clinical Impression: Musculoskeletal pain Time of Disposition: 20:12 Disposition: Discharge to Home or Self Care Condition: Good Departure Forms: ED Discharge - Pt. Copy, Patient Portal Self Enrollment Instructions: DI for Arm Pain Referrals: SAVANAH BACH [Primary Care Provider] - 1-2 Weeks Prescriptions: Cyclobenzaprine HCl [Flexeril] 10 mg PO TID PRN #15 tab PRN Reason: Pain Indomethacin 50 mg PO TID PRN #14 cap PRN Reason: Pain Home Medications: Ambulatory Orders Duloxetine HCl 60 mg PO DAILY 03/13/19 Metaxalone 400 mg PO TID PRN 03/13/19 Promethazine Tab [Phenergan Tablet] 50 mg PO .Q4H PRN #30 tab 03/13/19 Propranolol HCl [Inderal] 20 mg PO DAILY 03/13/19 Quetiapine Fumarate 200 mg PO BEDTIME 03/13/19 Cyclobenzaprine HCl [Flexeril] 10 mg PO TID PRN #15 tab 03/31/19 Indomethacin 50 mg PO TID PRN #14 cap 03/31/19
[2019-03-31] MEDS ORDERED: HYDROcodone 5MG/APAP 325MG 1 EA TAB PO ONE (20:16)
[2019-03-31 20:17] VITALS: O2SAT 98
[2019-03-31 20:35] VITALS: BP 124/103; TEMP 98.8
== END 2019-03-31 20:30 | disposition home or self-care (01) ==
LOC: ER 18:59
DX: M25.511 Pain in right shoulder (principal); Z87.891 Personal history of nicotine dependence; Z79.899 Other long term (current) drug therapy

== ENCOUNTER 2019-04-05 10:55 | Emergency (ER) | payer OTHER ==
[2019-04-05] MEDS ORDERED: KETOROLAC TROMETHAMINE INJ 60 MG/2 ML VIAL IM ONE (11:10)
[2019-04-05] MEDS ORDERED: PROMETHAZINE HCL INJ 25 MG/ML VIAL IM ONE (11:11)
[2019-04-05 11:19] VITALS: O2SAT 97
[2019-04-05] MEDS ORDERED: ORPHENADRINE CITRATE 30 MG/ML AMP IM ONE (12:00)
--- NOTE | 2019-04-05 13:16 | ED.PDOC ---
History of Present Illness - General Chief Complaint: Upper Extremity Injury Stated Complaint: left shoulder pain Time Seen by Provider: 04/05/19 11:08 Source: patient, RN notes reviewed, Vital Signs reviewed, EMS notes reviewed Additional Information: 49 YEAR OLD PRESENTS WITH PAIN IN THE LEFT SHOULDER AND BACK OF HER NECK FOR A WEEK SHE HAS HAD NECK SURGERY 6 MONTHS AGO AND SHE IS NOW AWAITING SHOULDER SURGERY FOR A TORN LABIUM ANNULAR SHE HAS HER SHOULDER IN A SLING DENIES ANY NUMBNESS WEAKNESS FUNCTION LIMITED SECONDARY TO PAIN THAT SHE SUFFERS ON A [facility] BASIS - History of Present Illness Timing/Duration: 1 week Severity: moderate Improving Factors: immobilization Worsening Factors: movement Associated Symptoms: denies symptoms Allergies/Adverse Reactions: Allergies NO KNOWN ALLERGY Allergy (Verified 03/31/19 19:45) Home Medications: Ambulatory Orders Duloxetine HCl 60 mg PO DAILY 03/13/19 Metaxalone 400 mg PO TID PRN 03/13/19 Propranolol HCl [Inderal] 20 mg PO DAILY 03/13/19 Quetiapine Fumarate 200 mg PO BEDTIME 03/13/19 Indomethacin 50 mg PO TID PRN #14 cap 03/31/19 Cyclobenzaprine HCl [Flexeril] 5 mg PO TID #10 tab 04/05/19 Review of Systems - Review of Systems Constitutional: States: no symptoms reported EENTM: States: no symptoms reported Respiratory: States: no symptoms reported Cardiology: States: no symptoms reported Gastrointestinal/Abdominal: States: no symptoms reported Genitourinary: States: no symptoms reported Musculoskeletal: States: see HPI Skin: States: no symptoms reported Neurological: States: no symptoms reported Endocrine: States: no symptoms reported Hematologic/Lymphatic: States: no symptoms reported Past Medical History (General) - Patient Medical History Hx Seizures: No Hx Stroke: No Hx Dementia: No Hx Asthma: No Hx of COPD: No Hx Cardiac Disorders: No Hx Congestive Heart Failure: No Hx Pacemaker: No Hx Hypertension: No Hx Thyroid Disease: No Hx Diabetes: No Hx Gastroesophageal Reflux: Yes - Hx hiatal hernia Hx Renal Disease: No Hx Cancer: No Hx of HIV: No Hx Hepatitis C: No Hx MRSA: No Surgical History: Hysterectomy, other - Vaccination History Hx Tetanus, Diphtheria Vaccination: Yes Hx Influenza Vaccination: Yes Hx Pneumococcal Vaccination: Yes - Social History Hx Tobacco Use: Yes Hx Chewing Tobacco Use: No Hx Alcohol Use: No Hx Substance Use: No Hx Substance Use Treatment: No Hx Depression: No Hx Physical Abuse: No Hx Emotional Abuse: No Hx Suspected Abuse: No - Female History Patient : No Family Medical History - Family History Mother Family History: Unknown Living Status: Hx Cardiac Disease: Yes - sister Hx Family Cancer: Yes - breast w/METS;brother Hx Family;Other: sister -Lupus Physical Exam - Physical Exam General Appearance: Alert, Anxious Eye Exam: bilateral normal Ears, Nose, Throat: hearing grossly normal, normal ENT inspection, normal pharynx Neck: other - ANTEROR NECK SCAR NOTED THERE IS MUSCLE SORENESS ON THE LOWER NECK ALEX TO THE LEFT OF MIDLINE Respiratory: chest non-tender, lungs clear, normal breath sounds, no respiratory distress Cardiovascular/Chest: normal peripheral pulses, regular rate, rhythm, no edema, no gallop, no JVD Gastrointestinal/Abdominal: normal bowel sounds, non tender, soft, no organomegaly, no pulsatile mass Back Exam: no CVA tenderness Extremity: other - SEE HPI 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 Copy, Patient Portal Self Enrollment Referrals: SAVANAH BACH [Primary Care Provider] - 1-2 Weeks Home Medications: Ambulatory Orders Duloxetine HCl 60 mg PO DAILY 03/13/19 Metaxalone 400 mg PO TID PRN 03/13/19 Propranolol HCl [Inderal] 20 mg PO DAILY 03/13/19 Quetiapine Fumarate 200 mg PO BEDTIME 03/13/19 Indomethacin 50 mg PO TID PRN #14 cap 03/31/19 Cyclobenzaprine HCl [Flexeril] 5 mg PO TID #10 tab 04/05/19
[2019-04-05 13:44] VITALS: BP 133/92; TEMP 98.1
== END 2019-04-05 13:32 | disposition home or self-care (01) ==
LOC: ER 10:55
DX: S43.402A Unspecified sprain of left shoulder joint, initial encounter (principal); G89.29 Other chronic pain; M25.512 Pain in left shoulder; Z87.891 Personal history of nicotine dependence; Z79.899 Other long term (current) drug therapy; Z98.890 Other specified postprocedural states; X58.XXXA Exposure to other specified factors, initial encounter; Y92.9 Unspecified place or not applicable
CPT/HCPCS: J1885; J2360; J2550

== ENCOUNTER 2019-04-21 21:15 | Emergency (ER) | payer OTHER ==
[2019-04-21 21:26] VITALS: TEMP 98.3
--- NOTE | 2019-04-21 22:16 | ED.PDOC ---
History of Present Illness - General Chief Complaint: Upper Extremity Injury Stated Complaint: Left Shoulder Pain Time Seen by Provider: 04/21/19 22:03 Source: patient Exam Limitations: no limitations - History of Present Illness Initial Comments: Ella Kothari 49 y/o female with chronic left shoulder pain due to SLAP tear on MRI came to er with exacerbation of her sharp left shoulder pain non radiating;she was to have surgery on left shoulder but still need to see painter set before operation this coming Friday Occurred: this evening - chronic left shoulder pain Pain - Upper Extremity: moderate: Shoulder, left Method of Injury: other - chronic no recent injuries Improving Factors: rest Worsening Factors: movement Associated Symptoms: see HPI Allergies/Adverse Reactions: Allergies NO KNOWN ALLERGY Allergy (Verified 03/31/19 19:45) Home Medications: Ambulatory Orders Duloxetine HCl 60 mg PO DAILY 03/13/19 Metaxalone 400 mg PO TID PRN 03/13/19 Propranolol HCl [Inderal] 20 mg PO DAILY 03/13/19 Quetiapine Fumarate 200 mg PO BEDTIME 03/13/19 Indomethacin 50 mg PO TID PRN #14 cap 03/31/19 Cyclobenzaprine HCl [Flexeril] 5 mg PO TID #10 tab 04/05/19 Baclofen 20 mg PO BID #10 tab 04/21/19 Review of Systems - Review of Systems Musculoskeletal: States: see HPI, joint pain - left shoulder Past Medical History (General) - Patient Medical History Hx Seizures: No Hx Stroke: No Hx Dementia: No Hx Asthma: No Hx of COPD: No Hx Cardiac Disorders: No Hx Congestive Heart Failure: No Hx Pacemaker: No Hx Hypertension: No Hx Thyroid Disease: No Hx Diabetes: No Hx Gastroesophageal Reflux: Yes - Hx hiatal hernia Hx Renal Disease: No Hx Cancer: No Hx of HIV: No Hx Hepatitis C: No Hx MRSA: No Surgical History: tonsillectomy, Hysterectomy - Vaccination History Hx Tetanus, Diphtheria Vaccination: Yes Hx Influenza Vaccination: Yes Hx Pneumococcal Vaccination: Yes Immunizations Up to Date: Yes - Social History Hx Tobacco Use: Yes Hx Chewing Tobacco Use: No Hx Alcohol Use: No Hx Substance Use: No Hx Substance Use Treatment: No Hx Depression: No Hx Physical Abuse: No Hx Emotional Abuse: No Hx Suspected Abuse: No - Female History Patient is a Female of Child Bearing Age (10 -59 yrs old): Yes Patient : No Family Medical History - Family History Mother Family History: Unknown Living Status: Hx Cardiac Disease: Yes - sister Hx Family Cancer: Yes - breast w/METS;brother Hx Family;Other: sister -Lupus Physical Exam - Physical Exam General Appearance: Alert, Comfortable, No apparent distress Eyes, Ears, Nose, Throat Exam: normal ENT inspection Neck: normal inspection Cardiovascular/Respiratory: regular rate, rhythm, normal peripheral pulses Abdominal Exam: non-tender Back Exam: normal inspection Shoulder Exam: normal inspection, limited ROM - because of pain, soft tissue tenderness Elbow/Forearm Exam: normal inspection, non-tender Wrist Exam: normal inspection, non-tender Hand Exam: normal inspection, non-tender Neuro/Tendon: normal sensation, normal motor functions, normal tendon functions Mental Status: alert, oriented x 3 Skin Exam: normal color, warm/dry Progress - Progress Progress: 04/21/19 22:19 Vital Signs - 8 hr 04/21/19 04/21/19 21:18 22:00 Temperature 98.3 F Pulse Rate [ 99 H 67 Left Apical] Respiratory 20 20 Rate Blood Pressure 151/93 120/82 [Left Arm] O2 Sat by Pulse 97 99 Oximetry Departure - Departure Clinical Impression: Pain, joint, shoulder, left SLAP (superior labrum from anterior to posterior) tear Qualifiers: Encounter type: initial encounter Laterality: left Qualified Code(s): S43.432A - Superior glenoid labrum lesion of left shoulder, initial encounter Time of Disposition: 22:22 Disposition: Discharge to Home or Self Care Condition: Fair Departure Forms: ED Discharge - Pt. Copy, Patient Portal Self Enrollment Referrals: SAVANAH BACH [Primary Care Provider] - 1-2 Weeks Prescriptions: Baclofen 20 mg PO BID #10 tab Home Medications: Ambulatory Orders Duloxetine HCl 60 mg PO DAILY 03/13/19 Metaxalone 400 mg PO TID PRN 03/13/19 Propranolol HCl [Inderal] 20 mg PO DAILY 03/13/19 Quetiapine Fumarate 200 mg PO BEDTIME 03/13/19 Indomethacin 50 mg PO TID PRN #14 cap 03/31/19 Cyclobenzaprine HCl [Flexeril] 5 mg PO TID #10 tab 04/05/19 Baclofen 20 mg PO BID #10 tab 04/21/19 Additional Instructions: Keep appointment with Vehicle Body Builder 23 April 2019 as scheduled
[2019-04-21 22:18] VITALS: BP 120/82; O2SAT 99
[2019-04-21] MEDS ORDERED: HYDROcodone 10MG/APAP 325MG 1 EA TAB PO ONE (22:20)
[2019-04-21] MEDS ORDERED: HYDROCOD/APAP 10/325 (ER DISP) # 3 tablets PO ONE (22:20)
[2019-04-21] MEDS ORDERED: BACLOFEN 10 MG TAB PO ONE (22:20)
== END 2019-04-21 22:36 | disposition home or self-care (01) ==
LOC: ER 21:15
DX: S43.432A Superior glenoid labrum lesion of left shoulder, initial encounter (principal); K21.9 Gastro-esophageal reflux disease without esophagitis; K44.9 Diaphragmatic hernia without obstruction or gangrene; X58.XXXA Exposure to other specified factors, initial encounter; Z87.891 Personal history of nicotine dependence; Y92.9 Unspecified place or not applicable; Z79.899 Other long term (current) drug therapy

== ENCOUNTER 2019-04-24 18:27 | Emergency (ER) | payer OTHER ==
[2019-04-24] MEDS ORDERED: KETOROLAC TROMETHAMINE INJ 30 MG/ML VIAL IM ONE (19:16)
[2019-04-24] MEDS ORDERED: PROMETHAZINE HCL 25 MG TAB PO ONE (20:12)
--- NOTE | 2019-04-24 20:37 | ED.PDOC ---
History of Present Illness - General Chief Complaint: Headache Stated Complaint: migraine, nausea, shakey, Time Seen by Provider: 04/24/19 18:37 Source: patient Exam Limitations: no limitations - History of Present Illness Initial Comments: Patient presents with nausea and a headache after starting baclofen yesterday. She was taking metaxalone at the same time but when she got the headache, she decided not to take her morning dose of metaxalone and took the baclofen instead. The nausea returned and so did her headache. The headache is frontal, throbbing, constant, non-radiating, no modifying factors, no particular context, started both times within 30 minutes after taking the baclofen, + previous episodes. No other complaints. Timing/Duration: 24 hours Severity: moderate Improving Factors: nothing Worsening Factors: nothing Associated Symptoms: other - as in HPI Allergies/Adverse Reactions: Allergies NO KNOWN ALLERGY Allergy (Verified 04/24/19 19:10) Home Medications: Ambulatory Orders Duloxetine HCl 60 mg PO DAILY 03/13/19 Metaxalone 400 mg PO TID PRN 03/13/19 Propranolol HCl [Inderal] 20 mg PO DAILY 03/13/19 Quetiapine Fumarate 200 mg PO BEDTIME 03/13/19 Indomethacin 50 mg PO TID PRN #14 cap 03/31/19 Cyclobenzaprine HCl [Flexeril] 5 mg PO TID #10 tab 04/05/19 Baclofen 20 mg PO BID #10 tab 04/21/19 Hydrocodone-Acetaminophen [[place] 7.5-325 mg] 1 tab PO BIDAC 04/24/19 Review of Systems - Review of Systems Constitutional: States: no symptoms reported, chills Respiratory: States: no symptoms reported Cardiology: States: no symptoms reported Gastrointestinal/Abdominal: States: see HPI Genitourinary: States: see HPI Musculoskeletal: States: no symptoms reported Skin: States: no symptoms reported Neurological: States: see HPI Endocrine: States: no symptoms reported Hematologic/Lymphatic: States: no symptoms reported Past Medical History (General) - Patient Medical History Hx Seizures: No Hx Stroke: No Hx Dementia: No Hx Asthma: No Hx of COPD: No Hx Cardiac Disorders: No Hx Congestive Heart Failure: No Hx Pacemaker: No Hx Hypertension: No Hx Thyroid Disease: No Hx Diabetes: No Hx Gastroesophageal Reflux: Yes - Hx hiatal hernia Hx Renal Disease: No Hx Cancer: No Hx of HIV: No Hx Hepatitis C: No Hx MRSA: No Surgical History: tonsillectomy, Hysterectomy - Vaccination History Hx Tetanus, Diphtheria Vaccination: Yes Hx Influenza Vaccination: Yes Hx Pneumococcal Vaccination: Yes - Social History Hx Tobacco Use: Yes Hx Chewing Tobacco Use: No Hx Alcohol Use: No Hx Substance Use: No Hx Substance Use Treatment: No Hx Depression: No Hx Physical Abuse: No Hx Emotional Abuse: No Hx Suspected Abuse: No - Female History Patient : No Family Medical History - Family History Mother Family History: Unknown Living Status: Hx Cardiac Disease: Yes - sister Hx Family Cancer: Yes - breast w/METS;brother Hx Family;Other: sister -Lupus Physical Exam - Physical Exam General Appearance: Alert Eye Exam: bilateral normal Ears, Nose, Throat: normal ENT inspection Neck: non-tender, full range of motion, supple Respiratory: lungs clear, normal breath sounds Cardiovascular/Chest: normal peripheral pulses, regular rate, rhythm, no edema Gastrointestinal/Abdominal: normal bowel sounds, non tender, soft 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 She was instructed to followup with her regular doctor on Friday if shoulder pain became worse. Care instructions given. E.R. warnings given. Questions were elicited and answered. Patient voiced understanding and agreement with the plan. Departure - Departure Clinical Impression: Headache, Medication adverse effect, Nausea Disposition: Discharge to Home or Self Care Condition: Good Departure Forms: ED Discharge - Pt. Copy, Patient Portal Self Enrollment Diet: resume usual diet Activity: other - as per your regular doctor Referrals: SAVANAH BACH [Primary Care Provider] - 1-2 Weeks Home Medications: Ambulatory Orders Duloxetine HCl 60 mg PO DAILY 03/13/19 Metaxalone 400 mg PO TID PRN 03/13/19 Propranolol HCl [Inderal] 20 mg PO DAILY 03/13/19 Quetiapine Fumarate 200 mg PO BEDTIME 03/13/19 Indomethacin 50 mg PO TID PRN #14 cap 03/31/19 Cyclobenzaprine HCl [Flexeril] 5 mg PO TID #10 tab 04/05/19 Baclofen 20 mg PO BID #10 tab 04/21/19 Hydrocodone-Acetaminophen [[place] 7.5-325 mg] 1 tab PO BIDAC 04/24/19 Additional Instructions: If symptoms worsen, return to the E.R. See your regular doctor on Friday if you are interested in changing medications line and frame poler.
[2019-04-24 21:13] VITALS: BP 123/82
[2019-04-24 21:23] VITALS: TEMP 98.1; O2SAT 98
== END 2019-04-24 21:20 | disposition home or self-care (01) ==
LOC: ER 18:27
DX: G44.40 Drug-induced headache, not elsewhere classified, not intractable (principal); T42.8X5A Adverse effect of antiparkinsonism drugs and other central muscle-tone depressants, initial encounter; R11.0 Nausea; K21.9 Gastro-esophageal reflux disease without esophagitis; Z79.899 Other long term (current) drug therapy; Z87.891 Personal history of nicotine dependence
CPT/HCPCS: J1885; Q0169

== ENCOUNTER 2019-05-25 | Emergency (ER) | payer OTHER ==
--- NOTE | 2019-05-25 15:18 | ED.PDOC ---
History of Present Illness - General Chief Complaint: General Stated Complaint: Requesting med refill Time Seen by Provider: 05/25/19 14:58 Source: patient, RN/MD Exam Limitations: no limitations - History of Present Illness Initial Comments: Patient is a 49 yo F with hx of Hypothyroidism not on synthroid presenting for evaluation of elevated TSH. She states that she had outpatient testing performed which was significant for a TSH of 18. She notes that she is trying to be cleared for left shoulder arthroscopy and had routine lab work performed by the pain management clinic. She states that she has not taken her Synthroid for 2 years. She denies any chest pain, shortness of breath, lower extremity edema, fatigue, or weight gain. She has not had any near syncopal episodes. She has had a good appetite. She has chronic left shoulder pain but denies any other complaints. She did call her PCP to restart her Synthroid however she is unable to see them for the next week. Associated Symptoms: denies symptoms Allergies/Adverse Reactions: Allergies NO KNOWN ALLERGY Allergy (Verified 05/25/19 15:05) Home Medications: Ambulatory Orders Duloxetine HCl 60 mg PO DAILY 03/13/19 Metaxalone 400 mg PO TID PRN 03/13/19 Propranolol HCl [Inderal] 20 mg PO DAILY 03/13/19 Quetiapine Fumarate 200 mg PO BEDTIME 03/13/19 Baclofen 20 mg PO BID #10 tab 04/21/19 Hydrocodone-Acetaminophen [[place] 7.5-325 mg] 1 tab PO Q6H PRN 04/24/19 Gabapentin 300 mg PO BID 05/25/19 Review of Systems - Review of Systems Constitutional: States: no symptoms reported Respiratory: States: no symptoms reported Cardiology: States: no symptoms reported Gastrointestinal/Abdominal: States: no symptoms reported Musculoskeletal: States: joint pain - chronic left shoulder pain Neurological: States: no symptoms reported Endocrine: States: no symptoms reported Past Medical History (General) - Patient Medical History Hx Seizures: No Hx Stroke: No Hx Dementia: No Hx Asthma: No Hx of COPD: No Hx Cardiac Disorders: No Hx Congestive Heart Failure: No Hx Pacemaker: No Hx Hypertension: No Hx Thyroid Disease: Yes Hx Diabetes: No Hx Gastroesophageal Reflux: Yes - Hx hiatal hernia Hx Renal Disease: No Hx Cancer: No Hx of HIV: No Hx Hepatitis C: No Hx MRSA: No Surgical History: tonsillectomy, Hysterectomy, other - Vaccination History Hx Tetanus, Diphtheria Vaccination: Yes Hx Influenza Vaccination: No Hx Pneumococcal Vaccination: Yes - Social History Hx Tobacco Use: Yes Hx Chewing Tobacco Use: No Hx Alcohol Use: No Hx Substance Use: No Hx Substance Use Treatment: No Hx Depression: No Hx Physical Abuse: No Hx Emotional Abuse: No Hx Suspected Abuse: No - Female History Patient : No Family Medical History - Family History Mother Family History: Unknown Living Status: Hx Cardiac Disease: Yes - sister Hx Family Cancer: Yes - breast w/METS;brother Hx Family;Other: sister -Lupus Physical Exam - Physical Exam General Appearance: Comfortable, No apparent distress, Well Developed, Well Nourished Eye Exam: bilateral normal Ears, Nose, Throat: hearing grossly normal Neck: non-tender, full range of motion, supple, normal inspection Respiratory: lungs clear, normal breath sounds, no respiratory distress, no accessory muscle use Cardiovascular/Chest: normal peripheral pulses, regular rate, rhythm, no edema, no gallop, no JVD, no murmur Gastrointestinal/Abdominal: normal bowel sounds, non tender, soft Neurologic: alert, oriented x 3 Progress - Progress Progress: DDx: Hypothyroidism, non-compliance, myxedema coma, thyroid mass 05/25/19 15:29 Patient evaluated for abnormal lab findings. She was found to have a TSH of 18 and free T4 of 0.4. She was otherwise asymptomatic. She has been non-compliant with her medications for two years at this time. She has been previously diagnosed with hypothyroidism and this is not a new condition for the patient. She has no complaints of neck pain or swelling. She has no constitutional symptoms to suggest severe hypothyroidism or symptoms to suggest myxedma coma. Patient has outpatient follow-up with her PCP. As I do not follow-up with patient in clinic, I discussed that I will let her PCP restart her synthroid. Patient is not symptomatic from her hypothyroidism and has no new symptoms. She was otherwise hemodynamically stable and denied CP or SOB. Patient felt comfortable with plan for discharge home and follow-up with PCP to restart Synthroid. Departure - Departure Clinical Impression: Hypothyroidism in adult Time of Disposition: 15:16 Disposition: Discharge to Home or Self Care Condition: Good Departure Forms: ED Discharge - Pt. Copy, Patient Portal Self Enrollment Instructions: Hypothyroidism (Underactive Thyroid) Diet: resume usual diet Activity: increase activity as tolerated Referrals: SAVANAH BACH [Primary Care Provider] - 1-2 Weeks Home Medications: Ambulatory Orders Duloxetine HCl 60 mg PO DAILY 03/13/19 Metaxalone 400 mg PO TID PRN 03/13/19 Propranolol HCl [Inderal] 20 mg PO DAILY 03/13/19 Quetiapine Fumarate 200 mg PO BEDTIME 03/13/19 Baclofen 20 mg PO BID #10 tab 04/21/19 Hydrocodone-Acetaminophen [[place] 7.5-325 mg] 1 tab PO Q6H PRN 04/24/19 Gabapentin 300 mg PO BID 05/25/19 Additional Instructions: Please talk to your family physician about starting your synthroid and rechecking your levels. Return to the ER if you have chest pain, shortness of breath, fatigue, weakness, or any other concerns.
== END 2019-05-25 15:27 | disposition home or self-care (01) ==

== ENCOUNTER 2019-07-22 23:34 | Emergency (ER) | payer OTHER ==
[2019-07-22 23:54] VITALS: TEMP 97.1; O2SAT 98
[2019-07-22] MEDS ORDERED: SODIUM CHLORIDE 0.9% 1000ML 1,000 ML IVS ONE (23:54)
[2019-07-22] MEDS ORDERED: ONDANSETRON INJ 4 MG/2 ML VIAL IV ONE (23:54)
[2019-07-22] MEDS ORDERED: DICYCLOMINE HCL INJ 20 MG/2 ML AMP IM ONE (23:54)
[2019-07-22] MEDS ORDERED: HYDROcodone 5MG/APAP 325MG 1 EA TAB PO ONE (23:54)
[2019-07-22] MEDS ORDERED: KETOROLAC TROMETHAMINE INJ 30 MG/ML VIAL IV ONE (23:54)
--- NOTE | 2019-07-22 23:57 | ED.PDOC ---
History of Present Illness - General Chief Complaint: GI Problem Stated Complaint: n/v/D x4 days Time Seen by Provider: 07/22/19 23:50 - History of Present Illness Initial Comments: 49 y.o. F presents c/o generalized malaise, nausea, vomiting and diarrhea. Says symptoms began 3 days. Reports multiple episodes of loose, watery stools in addition to crampy and bloated abdominal pain. No known sick contacts. Multiple episodes of NBNB emesis. No recent travel. Chills but no fevers. Symptoms constant. no aggravating or alleviating factors. Review of Systems - Review of Systems Constitutional: States: chills. Denies: fever EENTM: States: no symptoms reported Respiratory: States: no symptoms reported Cardiology: States: no symptoms reported Gastrointestinal/Abdominal: States: abdominal pain, diarrhea, nausea, vomiting Genitourinary: States: no symptoms reported Musculoskeletal: States: no symptoms reported Skin: States: no symptoms reported Neurological: States: no symptoms reported Endocrine: States: no symptoms reported Hematologic/Lymphatic: States: no symptoms reported All other Systems: Reviewed and Negative Past Medical History (General) - Patient Medical History Hx Seizures: No Hx Stroke: No Hx Dementia: No Hx Asthma: No Hx of COPD: No Hx Cardiac Disorders: No Hx Congestive Heart Failure: No Hx Pacemaker: No Hx Hypertension: No Hx Thyroid Disease: Yes Hx Diabetes: No Hx Gastroesophageal Reflux: Yes - Hx hiatal hernia Hx Renal Disease: No Hx Cancer: No Hx of HIV: No Hx Hepatitis C: No Hx MRSA: No Surgical History: appendectomy, Hysterectomy, other - Vaccination History Hx Tetanus, Diphtheria Vaccination: Yes Hx Influenza Vaccination: No Hx Pneumococcal Vaccination: Yes - Social History Hx Tobacco Use: Yes Hx Chewing Tobacco Use: No Hx Alcohol Use: No Hx Substance Use: No Hx Substance Use Treatment: No Hx Depression: No Hx Physical Abuse: No Hx Emotional Abuse: No Hx Suspected Abuse: No - Female History Patient : No Family Medical History - Family History Mother Family History: Unknown Living Status: Hx Cardiac Disease: Yes - sister Hx Family Cancer: Yes - breast w/METS;brother Hx Family;Other: sister -Lupus Physical Exam - Physical Exam General Appearance: Alert, Comfortable Eyes, Ears, Nose, Throat Exam: normal ENT inspection, TMs normal Neck: full range of motion, supple Respiratory: lungs clear, normal breath sounds Cardiovascular/Chest: no edema, tachycardia Gastrointestinal/Abdominal: soft, other - slight generalized tenderness w/o rebound or guarding Rectal Exam: deferred Extremity: non-tender, normal inspection Neurologic: alert, normal mood/affect, oriented x 3 Skin Exam: normal color, warm/dry Lymphatic: no adenopathy Progress - Progress Progress: 07/22/19 23:59 MDM Patient presenting with 3 days of N/V/D and crampy abd pain. Some slight tenderness. Likely viral etiology. Plan for labs, treat symptoms, reassess need for imaging. diff dx: gastroenteritis, dehydration 07/23/19 00:57 Patient reports feeling much better, labs unremarkable. Will d/c. - Results/Orders Results/Orders: Laboratory Results - last 24 hr 07/22/19 07/22/19 23:40 23:40 WBC 8.4 RBC 3.92 L Hgb 13.0 Hct 38.7 MCV 98.8 MCH 33.1 H MCHC 33.5 RDW 15.2 H Plt Count 230 MPV 9.8 Absolute Neuts (auto) 5.40 Absolute Lymphs (auto) 1.90 Absolute Monos (auto) 0.50 Absolute Eos (auto) 0.50 H Absolute Basos (auto) 0.10 Neutrophils % 64.2 Lymphocytes % 22.7 Monocytes % 6.0 Eosinophils % 6.1 H Basophils % 1.0 Sodium 138 Potassium 3.8 Chloride 106 Carbon Dioxide 22 Anion Gap 13.8 BUN 12 Creatinine 0.65 BUN/Creatinine Ratio 18.5 Random Glucose 120 H Serum Osmolality 276.6 Calcium 9.0 Total Bilirubin 0.3 AST 14 ALT 10 Alkaline Phosphatase 91 Serum Total Protein 7.0 Albumin 3.3 Globulin 3.7 H Albumin/Globulin Ratio 0.9 L Lipase 89 H Departure - Departure Clinical Impression: Nausea & vomiting Qualifiers: Vomiting type: unspecified Vomiting Intractability: non-intractable Qualified Code(s): R11.2 - Nausea with vomiting, unspecified Diarrhea Qualifiers: Diarrhea type: presumed infectious Qualified Code(s): R19.7 - Diarrhea, unspecified Disposition: Discharge to Home or Self Care Condition: Good Departure Forms: ED Discharge - Pt. Copy, Patient Portal Self Enrollment Instructions: Nausea and Vomiting, Adult (DC) Referrals: SAVANAH BACH [Primary Care Provider] - 1-2 Weeks Home Medications: Ambulatory Orders Duloxetine HCl 60 mg PO DAILY 03/13/19 Metaxalone 400 mg PO TID PRN 03/13/19 Propranolol HCl [Inderal] 20 mg PO DAILY 03/13/19 Quetiapine Fumarate 200 mg PO BEDTIME 03/13/19 Baclofen 20 mg PO BID #10 tab 04/21/19 Hydrocodone-Acetaminophen [[place] 7.5-325 mg] 1 tab PO Q6H PRN 04/24/19 Gabapentin 300 mg PO BID 05/25/19
[2019-07-23 00:39] VITALS: BP 128/90
== END 2019-07-23 00:57 | disposition home or self-care (01) ==
LOC: ER 23:34
DX: R11.2 Nausea with vomiting, unspecified (principal); R19.7 Diarrhea, unspecified; E07.9 Disorder of thyroid, unspecified; K21.9 Gastro-esophageal reflux disease without esophagitis; Z90.49 Acquired absence of other specified parts of digestive tract; Z87.891 Personal history of nicotine dependence
CPT/HCPCS: 80053; 83690; 85025; 87502; J0500; J1885; J2405; J7030

== ENCOUNTER 2019-09-03 19:43 | Emergency (ER) | payer OTHER ==
[2019-09-03] MEDS ORDERED: SODIUM CHLORIDE 0.9% 1000ML 1,000 ML IVS ONE (19:51)
[2019-09-03] MEDS ORDERED: SODIUM CHLORIDE 0.9% (FLUSH) 10 ML SYG IV PRN (19:51)
[2019-09-03] MEDS ORDERED: ONDANSETRON INJ 4 MG/2 ML VIAL IV ONE (19:51)
--- NOTE | 2019-09-03 19:52 | ED.PDOC ---
History of Present Illness - General Time Seen by Provider: 09/03/19 19:51 Source: patient - History of Present Illness Initial Comments: 49 yo female who is bib for cc of nausea and vomiting. Reports ongoing GI sx's of n/v/d intermittently for 3 days now, worse today and also developed generalized constant 7/10 "twisting" abdominal pain all over her abdomen w/o radiation today. Nothing tried for relief. Eating or drinking anything makes her nausea & vomiting worse. Has only had a few sips of Sprite today as oral intake, states last urinated this morning. Reports 7 episodes of dark emesis in the past few hours today and 3 episodes of yellow/watery diarrhea today. Reports chills but no fevers. Also reports intermittent dry cough. Denies any dysuria/hematuria, chest pain, or dyspnea. Chronic daily smoker, denies any hx of abd surgeries. No known recent sick contacts. Allergies/Adverse Reactions: Allergies NO KNOWN ALLERGY Allergy (Verified 05/25/19 15:05) Home Medications: Ambulatory Orders Duloxetine HCl 60 mg PO DAILY 03/13/19 Metaxalone 400 mg PO TID PRN 03/13/19 Propranolol HCl [Inderal] 20 mg PO DAILY 03/13/19 Quetiapine Fumarate 200 mg PO BEDTIME 03/13/19 RX: Baclofen 20 mg PO BID #10 tab 04/21/19 Hydrocodone-Acetaminophen [[place] 7.5-325 mg] 1 tab PO Q6H PRN 04/24/19 Gabapentin 300 mg PO BID 05/25/19 Cephalexin Monohydrate [Keflex] 500 mg PO BID 5 Days #10 cap 09/03/19 Ondansetron Odt [Zofran ODT] 8 mg PO Q8H PRN 5 Days #10 tab 09/03/19 Review of Systems - Review of Systems Review of Systems: 09/03/19 20:04 as per HPI All other Systems: Reviewed and Negative Past Medical History (General) - Patient Medical History Hx Seizures: No Hx Stroke: No Hx Dementia: No Hx Asthma: No Hx of COPD: No Hx Cardiac Disorders: No Hx Congestive Heart Failure: No Hx Pacemaker: No Hx Hypertension: No Hx Thyroid Disease: Yes Hx Diabetes: No Hx Gastroesophageal Reflux: Yes - Hx hiatal hernia Hx Renal Disease: No Hx Cancer: No Hx of HIV: No Hx Hepatitis C: No Hx MRSA: No - Vaccination History Hx Tetanus, Diphtheria Vaccination: Yes Hx Influenza Vaccination: No Hx Pneumococcal Vaccination: Yes - Social History Hx Tobacco Use: Yes Hx Chewing Tobacco Use: No Hx Alcohol Use: No Hx Substance Use: No Hx Substance Use Treatment: No Hx Depression: No Hx Physical Abuse: No Hx Emotional Abuse: No Hx Suspected Abuse: No - Female History Patient : No Family Medical History - Family History Mother Family History: Unknown Living Status: Hx Cardiac Disease: Yes - sister Hx Family Cancer: Yes - breast w/METS;brother Hx Family;Other: sister -Lupus Physical Exam - Physical Exam General Appearance: Alert, No apparent distress Eye Exam: bilateral normal Ears, Nose, Throat: hearing grossly normal, normal ENT inspection, normal pharynx Neck: non-tender, full range of motion, supple, normal inspection Respiratory: lungs clear, normal breath sounds, no respiratory distress Cardiovascular/Chest: normal peripheral pulses, regular rate, rhythm, no edema, no murmur Gastrointestinal/Abdominal: tenderness - moderate diffuse ttp, worse at epigastric region & LUQ, other - diminished breath sounds throughout Back Exam: normal inspection, no CVA tenderness, no vertebral tenderness Extremity: normal range of motion, non-tender, normal inspection, no pedal edema, no calf tenderness Neurologic: no motor/sensory deficits, alert, normal mood/affect, oriented x 3 Skin Exam: normal color, warm/dry Progress - Progress Progress: 09/03/19 20:05 Abdominal pain, n/v/d -suspect acute viral gastroenteritis most likely, consider also pancreatitis vs colitis vs gallstones/cholecystitis vs other -labs, place PIV, 1 L NS bolus, Zofran 4 mg IV, UA, flu test 09/03/19 20:52 -Labs reveal WBC 10k without left shift or bandemia. UA reveals TNTC WBCs, 10- 20 RBC, many bacteria - suspect UTI. Remainder of labs largely unremarkable. -Pt reports feeling much better with ED Trx. Discussed dx's of viral gastroenteritis & UTI and trx plan - will give Rocephin 1 g IV here in ED & send home on Keflex 500 mg PO BID x5 days for UTI. Discussed supportive care and will give Rx of Zofran PRN as well. Return warnings discussed at length, advised close PCP f/u. Erik Ash MD Billing #[id number] - Results/Orders Results/Orders: 09/03/19 19:51 IV Care:Saline Lock per Protoc QSHIFT 09/03/19 20:31 Urine Culture Stat Laboratory Results - last 24 hr 09/03/19 09/03/19 09/03/19 19:51 20:31 20:31 WBC 10.2 RBC 4.76 Hgb 15.2 Hct 45.3 MCV 95.2 MCH 32.0 H MCHC 33.6 RDW 14.3 Plt Count 431 H MPV 9.0 Absolute Neuts (auto) 6.80 Absolute Lymphs (auto) 2.20 Absolute Monos (auto) 0.50 Absolute Eos (auto) 0.40 Absolute Basos (auto) 0.20 H Neutrophils % 66.5 Lymphocytes % 21.8 Monocytes % 4.9 Eosinophils % 4.4 Basophils % 2.4 H Sodium 137 Potassium 3.7 Chloride 102 Carbon Dioxide 27 Anion Gap 11.7 L BUN 7 Creatinine 0.85 BUN/Creatinine Ratio 8.2 L Random Glucose 101 Serum Osmolality 271.9 L Calcium 9.0 Total Bilirubin 0.4 Direct Bilirubin 0.2 Indirect Bilirubin 0.2 AST 17 ALT < 8 L Alkaline Phosphatase 89 Serum Total Protein 7.9 Albumin 3.8 Lipase 35 Urine Color Yellow Urine Appearance Cloudy Urine pH 6.0 Ur Specific [place] >= 1.030 Urine Protein 30 Urine Glucose (UA) Negative Urine Ketones Negative Urine Blood Small H Urine Nitrite Negative Urine Bilirubin Negative Urine Urobilinogen 0.2 Ur Leukocyte Esterase Small H Urine RBC 10-20 H Urine WBC Tntc H Ur Epithelial Cells 10-20 Urine Bacteria 4+ H Urine Mucus Small Departure - Departure Clinical Impression: UTI (urinary tract infection), Gastroenteritis Time of Disposition: 20:55 Disposition: Discharge to Home or Self Care Condition: Fair Departure Forms: ED Discharge - Pt. Copy, Patient Portal Self Enrollment Instructions: Urinary Tract Infection, Adult (DC), Viral Gastroenteritis, Adult (DC) Diet: bland diet Referrals: SAVANAH BACH [Primary Care Provider] - 1-2 Weeks Prescriptions: Cephalexin Monohydrate [Keflex] 500 mg PO BID 5 Days #10 cap Ondansetron Odt [Zofran ODT] 8 mg PO Q8H PRN 5 Days #10 tab PRN Reason: Nausea Home Medications: Ambulatory Orders Duloxetine HCl 60 mg PO DAILY 06/22/19 Metaxalone 400 mg PO TID PRN 03/13/19 Propranolol HCl [Inderal] 20 mg PO DAILY 03/13/19 Quetiapine Fumarate 200 mg PO BEDTIME 03/13/19 RX: Baclofen 20 mg PO BID #10 tab 04/21/19 Hydrocodone-Acetaminophen [[place] 7.5-325 mg] 1 tab PO Q6H PRN 04/24/19 Gabapentin 300 mg PO BID 05/25/19 Cephalexin Monohydrate [Keflex] 500 mg PO BID 5 Days #10 cap 09/03/19 Ondansetron Odt [Zofran ODT] 8 mg PO Q8H PRN 5 Days #10 tab 09/03/19 Additional Instructions: Remain well-hydrated and advance diet as tolerated. Take the Zofran every 6-8 hours as needed for nausea. Return if worsening or if concerning symptoms develop such as worsening abdominal pain, intractable vomiting, poor intake by mouth, lack of urination >6-8 hours, blood in the stool, etc... Follow up with your primary care doctor in 1-2 weeks or sooner as needed.
[2019-09-03] MEDS ORDERED: cefTRIAXone SODIUM 1 GM in SODIUM CHL 0.9% 50ML MIN-BAG+ 50 ML IVPB ONE (20:51)
[2019-09-03] MEDS ORDERED: ONDANSETRON ODT (ER DISP) 8 MG TAB PO ONE (20:57)
[2019-09-03] MEDS ORDERED: cefTRIAXone SODIUM 1 GM VIAL ONE (20:58)
[2019-09-03] MEDS ORDERED: SODIUM CHL 0.9% 50ML MIN-BAG+ 50 ML IVPB ONE (20:58)
--- NOTE | 2019-09-03 21:43 | RAD ---
EXAM: XR Abdomen, 1 View CLINICAL HISTORY: abdominal pain, vomiting TECHNIQUE: Frontal supine view of the abdomen/pelvis. COMPARISON: No relevant prior studies available. FINDINGS: Limitations: Upper abdomen not completely included. Gastrointestinal tract: Unremarkable. No dilation. Bones/joints: Unremarkable. IMPRESSION: Limited as above. No abnormality noted. Electronically signed by: Charmaine Polo MD 09/03/2019 9:41 PM [employer]
[2019-09-03 22:35] VITALS: BP 118/79; TEMP 98.5; O2SAT 95
== END 2019-09-03 22:42 | disposition home or self-care (01) ==
LOC: ER 19:43
DX: K52.9 Noninfective gastroenteritis and colitis, unspecified (principal); N39.0 Urinary tract infection, site not specified; R05 Cough; E07.9 Disorder of thyroid, unspecified; K21.9 Gastro-esophageal reflux disease without esophagitis; F17.200 Nicotine dependence, unspecified, uncomplicated; Z79.899 Other long term (current) drug therapy
CPT/HCPCS: 36415; 74018; 80048; 80076; 81001; 83690; 85025; 87086; 87502; J0696; J2405; J7030; J7050

== ENCOUNTER 2019-10-06 15:48 | Emergency (ER) | payer OTHER ==
[2019-10-06 16:14] VITALS: TEMP 97.3; O2SAT 97
[2019-10-06] MEDS ORDERED: KETOROLAC TROMETHAMINE INJ 30 MG/ML VIAL IM ONE (16:23)
[2019-10-06] MEDS ORDERED: CYCLOBENZAPRINE HCL 10 MG TAB PO ONE (16:27)
--- NOTE | 2019-10-06 17:13 | RAD ---
EXAM: Cervical Spine, 2-3 Views CLINICAL INDICATION: 49-year-old female status post fall yesterday. TECHNIQUE: Four views of the cervical spine were obtained in AP, lateral, and odontoid projections. COMPARISON: None. FINDINGS: Postoperative changes are identified with ventral cervical spinal fusion hardware with screws traversing the vertebral bodies of C5 and C6 with intervening disk spacing hardware. The C7-T1 junction is nonvisualized secondary to overlying bony structures, despite swimmer's technique. The cervical spine is visualized to the bottom of C7. Alignment of the cervical spine is within normal limits. There is no subluxation or fracture deformity. Morphology of the vertebral bodies and intervertebral disc spaces is within normal limits. The prevertebral soft tissues are within normal limits. The airway is patent. Limited visualization of the lung apices is within normal limits. IMPRESSION: No acute radiographic abnormality. If patient's pain persists, repeat radiographs in 7 to 10 days or MRI cervical spine may be considered as clinically indicated. Electronically signed by: Kasey Quiñonez MD 10/06/2019 5:12 PM [facility]
--- NOTE | 2019-10-06 17:15 | RAD ---
EXAM: Shoulder,Left 2 or More Views CLINICAL INDICATION: 49-year-old female status post fall yesterday. TECHNIQUE: Two views LEFT shoulder were obtained in AP, internal/external rotation projections. COMPARISON: 03/27/2017. FINDINGS: There is no fracture or dislocation. The joint spaces are preserved. No soft tissue abnormalities are seen. Cervical fusion hardware present. IMPRESSION: Limited two views of the shoulder without findings to suggest acute fracture or dislocation. If there is clinical concern for dislocation, transscapular projection is recommended. Electronically signed by: Kasey Quiñonez MD 10/06/2019 5:13 PM [facility]
--- NOTE | 2019-10-06 17:30 | ED.PDOC ---
History of Present Illness - General Chief Complaint: Trauma Stated Complaint: neck,shoulder and low back pain Time Seen by Provider: 10/06/19 15:55 Source: patient Exam Limitations: no limitations - History of Present Illness Initial Comments: the patient is a 49-year-old female presenting to emergency room secondary to a fall yesterday. She strained her neck and her left shoulder during the fall. She has had both of these operated on. Range of motion is preserved. No neurological changes. No crepitus. No bruising. She is simply concerned about the operative sites. both surgeries are distant.neck pain is to the right at C2 and C3. It is in the musculature. It is posterior. Timing/Duration: 24 hours Severity: moderate Improving Factors: immobilization Worsening Factors: movement Associated Symptoms: denies symptoms Allergies/Adverse Reactions: Allergies NO KNOWN ALLERGY Allergy (Verified 05/25/19 15:05) Home Medications: Ambulatory Orders Duloxetine HCl 60 mg PO DAILY 03/13/19 Metaxalone 400 mg PO TID 03/13/19 Propranolol HCl [Inderal] 20 mg PO DAILY 03/13/19 Quetiapine Fumarate 200 mg PO BEDTIME 03/13/19 Gabapentin 300 mg PO BID 05/25/19 Cyclobenzaprine HCl [Flexeril] 5 mg PO TID PRN #30 tab 10/06/19 Hydrocodone-Acetaminophen [[place] 5-325 mg] 1 - 2 tab PO Q6H PRN 10/06/19 Mirtazapine [Remeron] 15 mg PO BEDTIME 10/06/19 Review of Systems - Review of Systems Constitutional: States: no symptoms reported EENTM: States: no symptoms reported Respiratory: States: no symptoms reported Cardiology: States: no symptoms reported Gastrointestinal/Abdominal: States: no symptoms reported Genitourinary: States: no symptoms reported Musculoskeletal: States: see HPI Skin: States: no symptoms reported Neurological: States: no symptoms reported Endocrine: States: no symptoms reported All other Systems: No Change from Baseline Past Medical History (General) - Patient Medical History Hx Seizures: No Hx Stroke: No Hx Dementia: No Hx Asthma: No Hx of COPD: No Hx Cardiac Disorders: No Hx Congestive Heart Failure: No Hx Pacemaker: No Hx Hypertension: No Hx Thyroid Disease: Yes Hx Diabetes: No Hx Gastroesophageal Reflux: Yes - Hx hiatal hernia Hx Renal Disease: No Hx Cancer: No Hx of HIV: No Hx Hepatitis C: No Hx MRSA: No Surgical History: Hysterectomy - Vaccination History Hx Tetanus, Diphtheria Vaccination: Yes Hx Influenza Vaccination: Yes Hx Pneumococcal Vaccination: Yes - Social History Hx Tobacco Use: Yes Hx Chewing Tobacco Use: No Hx Alcohol Use: No Hx Substance Use: No Hx Substance Use Treatment: No Hx Depression: No Hx Physical Abuse: No Hx Emotional Abuse: No Hx Suspected Abuse: No - Female History Patient : No Family Medical History - Family History Mother Family History: Unknown Living Status: Hx Cardiac Disease: Yes - sister Hx Family Cancer: Yes - breast w/METS;brother Hx Family;Other: sister -Lupus Physical Exam - Physical Exam General Appearance: Alert, Anxious, No apparent distress Eye Exam: bilateral normal Ears, Nose, Throat: hearing grossly normal, normal pharynx Neck: full range of motion - for this patient as compared to her normal, other - see history of present illness. Respiratory: lungs clear, normal breath sounds, no respiratory distress, no accessory muscle use Cardiovascular/Chest: normal peripheral pulses, regular rate, rhythm, no edema Peripheral Pulses: radial,right: 2+, radial,left: 2+ Rectal Exam: deferred Back Exam: no CVA tenderness, no vertebral tenderness Extremity: no pedal edema, normal capillary refill, other - range of motion of the left shoulder is preserved. 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 She has had surgeries at the sites previously. X-rays of the cervical spine and left shoulder show no evidence of any acute injury. The patient is neurovascularly intact. She will be written for Flexeril for as needed use as a muscle relaxer. she already has hydrocodone and can use Aleve as needed for pain management. ER warnings were given for any acute worsening. Ambulate carefully. Keep routine follow-up with primary care doctor and pain management. melanie watkins [phone] Departure - Departure Clinical Impression: Fall at home Qualifiers: Encounter type: initial encounter Qualified Code(s): W19.XXXA - Unspecified fall, initial encounter; Y92.009 - Unspecified place in unspecified non- institutional (private) residence as the place of occurrence of the external cause Cervical myofascial strain Qualifiers: Encounter type: initial encounter Qualified Code(s): S16.1XXA - Strain of muscle, fascia and tendon at neck level, initial encounter Strain of left shoulder Qualifiers: Encounter type: initial encounter Qualified Code(s): S46.912A - Strain of unspecified muscle, fascia and tendon at shoulder and upper arm level, left arm, initial encounter Disposition: Discharge to Home or Self Care Condition: Fair Departure Forms: ED Discharge - Pt. Copy, Patient Portal Self Enrollment Diet: regular diet Activity: increase activity as tolerated Referrals: SAVANAH BACH [Primary Care Provider] - 1-2 Weeks Prescriptions: Cyclobenzaprine HCl [Flexeril] 5 mg PO TID PRN #30 tab PRN Reason: Muscle Spasms Home Medications: Ambulatory Orders Duloxetine HCl 60 mg PO DAILY 03/13/19 Metaxalone 400 mg PO TID 03/13/19 Propranolol HCl [Inderal] 20 mg PO DAILY 03/13/19 Quetiapine Fumarate 200 mg PO BEDTIME 03/13/19 Gabapentin 300 mg PO BID 05/25/19 Cyclobenzaprine HCl [Flexeril] 5 mg PO TID PRN #30 tab 10/06/19 Hydrocodone-Acetaminophen [[place] 5-325 mg] 1 - 2 tab PO Q6H PRN 10/06/19 Mirtazapine [Remeron] 15 mg PO BEDTIME 10/06/19 Additional Instructions: the patient is a 49-year-old female presenting after a fall yesterday with some mild neck and left shoulder discomfort. She has had surgeries at the sites previously. X-rays of the cervical spine and left shoulder show no evidence of any acute injury. The patient is neurovascularly intact. She will be written for Flexeril for as needed use as a muscle relaxer. she already has hydrocodone and can use Aleve as needed for pain management. ER warnings were given for any acute worsening. Ambulate carefully. Keep routine follow-up with primary care doctor and pain management.
[2019-10-06 17:42] VITALS: BP 107/73
== END 2019-10-06 17:42 | disposition home or self-care (01) ==
LOC: ER 15:48
DX: S16.1XXA Strain of muscle, fascia and tendon at neck level, initial encounter (principal); S46.912A Strain of unspecified muscle, fascia and tendon at shoulder and upper arm level, left arm, initial encounter; M54.5 Low back pain; E07.9 Disorder of thyroid, unspecified; K21.9 Gastro-esophageal reflux disease without esophagitis; Z87.891 Personal history of nicotine dependence; Z98.890 Other specified postprocedural states; W01.0XXA Fall on same level from slipping, tripping and stumbling without subsequent striking against object, initial encounter; Y92.009 Unspecified place in unspecified non-institutional (private) residence as the place of occurrence of the external cause
CPT/HCPCS: 72040; 73030; J1885

== ENCOUNTER 2019-12-03 | Emergency (ER) | payer OTHER | END 2019-12-03 19:55 | disposition home or self-care (01) | DX: J06.9 Acute upper respiratory infection, unspecified (principal); M79.10 Myalgia, unspecified site; R07.9 Chest pain, unspecified; G89.29 Other chronic pain; F17.200 Nicotine dependence, unspecified, uncomplicated; E07.9 Disorder of thyroid, unspecified; K21.9 Gastro-esophageal reflux disease without esophagitis; Z98.890 Other specified postprocedural states; Z79.899 Other long term (current) drug therapy | CPT/HCPCS: 71045; 80053; 80329; 81001; 83605; 83690; 84484; 85025; 87070; 87086; 87502; 87880; 93005; J2405; J7030 ==

== ENCOUNTER 2019-12-29 18:56 | Emergency (ER) | payer OTHER ==
--- NOTE | 2019-12-29 19:20 | ED.PDOC ---
History of Present Illness - General Chief Complaint: Headache Time Seen by Provider: 12/29/19 19:09 Source: patient, RN notes reviewed, Vital Signs reviewed Exam Limitations: no limitations - History of Present Illness Timing/Duration: 4-6 hours Quality: severe Head Injury Location: global Recent Head Trauma: no recent headache/trauma, occasional headaches Improving Factors: nothing Worsening Factors: nothing Associated Symptoms: nausea/vomiting - neck pain, chronic Allergies/Adverse Reactions: Allergies NO KNOWN ALLERGY Allergy (Verified 05/25/19 15:05) Home Medications: Ambulatory Orders Duloxetine HCl 60 mg PO DAILY 03/13/19 Metaxalone 400 mg PO TID 03/13/19 Propranolol HCl [Inderal] 20 mg PO DAILY 03/13/19 Quetiapine Fumarate 200 mg PO BEDTIME 03/13/19 Gabapentin 300 mg PO BID 05/25/19 Cyclobenzaprine HCl [Flexeril] 5 mg PO TID PRN #30 tab 10/06/19 Hydrocodone-Acetaminophen [[place] 5-325 mg] 1 - 2 tab PO Q6H PRN 10/06/19 Mirtazapine [Remeron] 15 mg PO BEDTIME 10/06/19 Acetaminophen [Tylenol] 650 mg PO Q6H PRN #30 tab 12/03/19 Amoxicillin & Pot Clavulanate [Augmentin Tab] 875 mg PO BID 10 Days #20 tab 12/03/19 Ibuprofen 600 mg PO Q6H PRN #20 tab 12/03/19 Prednisone 40 mg PO DAILY 5 Days #10 tab 12/03/19 Review of Systems - Review of Systems Constitutional: Denies: chills, fever, weakness EENTM: Denies: eye pain, blurred vision, ear pain, throat pain Respiratory: Denies: cough, short of breath, wheezing Cardiology: Denies: chest pain, palpitations, syncope Gastrointestinal/Abdominal: States: nausea Genitourinary: Denies: dysuria, hematuria, pain Musculoskeletal: States: muscle pain, neck pain Skin: States: no symptoms reported. Denies: rash Neurological: States: headache. Denies: anxiety, numbness, paresthesia, tingling Past Medical History (General) - Patient Medical History Hx Seizures: No Hx Stroke: No Hx Dementia: No Hx Asthma: No Hx of COPD: No Hx Cardiac Disorders: No Hx Congestive Heart Failure: No Hx Pacemaker: No Hx Hypertension: No Hx Thyroid Disease: Yes Hx Diabetes: No Hx Gastroesophageal Reflux: Yes - Hx hiatal hernia Hx Renal Disease: No Hx Cancer: No Hx of HIV: No Hx Hepatitis C: No Hx MRSA: No - Vaccination History Hx Tetanus, Diphtheria Vaccination: Yes Hx Influenza Vaccination: Yes Hx Pneumococcal Vaccination: Yes - Social History Hx Tobacco Use: Yes Hx Chewing Tobacco Use: No Hx Alcohol Use: No Hx Substance Use: No Hx Substance Use Treatment: No Hx Depression: No Hx Physical Abuse: No Hx Emotional Abuse: No Hx Suspected Abuse: No - Female History Patient : No Family Medical History - Family History Mother Family History: Unknown Living Status: Hx Cardiac Disease: Yes - sister Hx Family Cancer: Yes - breast w/METS;brother Hx Family;Other: sister -Lupus Physical Exam - Physical Exam General Appearance: Alert, No apparent distress Eyes, Ears, Nose, Throat Exam: PERRL/EOMI, normal ENT inspection Neck: trachea midline, tender midline, other - has anterior approach fusion C spine Cardiovascular/Chest: regular rate, rhythm, no edema, no gallop, no JVD, no murmur Respiratory: lungs clear, normal breath sounds, no respiratory distress Gastrointestinal/Abdominal: non tender, soft Back Exam: normal inspection, no CVA tenderness Extremity: normal range of motion, normal inspection Mental Status: alert, oriented x 3 [employer] st[employer] Exam: normal hearing, normal speech, PERRL Coordination/Gait: normal gait Motor/Sensory: no motor deficit, no sensory deficit Skin Exam: warm/dry, normal color Departure - Departure Clinical Impression: Migraine, Neck pain Time of Disposition: 20:18 Disposition: Discharge to Home or Self Care Condition: Good Departure Forms: ED Discharge - Pt. Copy, Patient Portal Self Enrollment Instructions: DI for Headache Referrals: SAVANAH BACH [Primary Care Provider] - 1-2 Weeks Home Medications: Ambulatory Orders Duloxetine HCl 60 mg PO DAILY 03/13/19 Metaxalone 400 mg PO TID 03/13/19 Propranolol HCl [Inderal] 20 mg PO DAILY 03/13/19 Quetiapine Fumarate 200 mg PO BEDTIME 03/13/19 Gabapentin 300 mg PO BID 05/25/19 Cyclobenzaprine HCl [Flexeril] 5 mg PO TID PRN #30 tab 10/06/19 Hydrocodone-Acetaminophen [[place] 5-325 mg] 1 - 2 tab PO Q6H PRN 10/06/19 Mirtazapine [Remeron] 15 mg PO BEDTIME 10/06/19 Acetaminophen [Tylenol] 650 mg PO Q6H PRN #30 tab 12/03/19 Amoxicillin & Pot Clavulanate [Augmentin Tab] 875 mg PO BID 10 Days #20 tab 12/03/19 Ibuprofen 600 mg PO Q6H PRN #20 tab 12/03/19 Prednisone 40 mg PO DAILY 5 Days #10 tab 12/03/19
[2019-12-29] MEDS ORDERED: KETOROLAC TROMETHAMINE INJ 30 MG/ML VIAL IV ONE (19:24)
[2019-12-29] MEDS ORDERED: SODIUM CHLORIDE 0.9% 1000ML 1,000 ML IVS ONE (19:24)
[2019-12-29] MEDS ORDERED: HALOPERIDOL LACTATE INJ 5 MG/ML VIAL IV ONE (19:25)
[2019-12-29] MEDS ORDERED: diphenhydrAMINE HCL 50 MG/ML VIAL IV ONE (19:27)
[2019-12-29] MEDS ORDERED: CEPHALEXIN MONOHYDRATE 500 MG CAP PO ONE (20:28)
[2019-12-29 22:00] VITALS: BP 109/72; TEMP 97.7; O2SAT 99
== END 2019-12-29 20:55 | disposition home or self-care (01) ==
LOC: ER 18:56
DX: G43.909 Migraine, unspecified, not intractable, without status migrainosus (principal); M54.2 Cervicalgia; F17.200 Nicotine dependence, unspecified, uncomplicated
CPT/HCPCS: 81001; 87086; J1200; J1630; J1885; J7030

== ENCOUNTER 2020-04-19 19:04 | Emergency (ER) | payer OTHER ==
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
--- NOTE | 2020-04-19 19:53 | RAD ---
EXAM: XR Lumbosacral Spine, 2 or 3 Views CLINICAL HISTORY: The patient is 50 years old and is Female; acute onset right SI joint pain TECHNIQUE: Three views of the lumbar spine and sacrum. COMPARISON: November 15, 2018. FINDINGS: Vertebrae: Straightening of the normal lordotic curvature of the spine without subluxation/malalignment. No acute fracture. Sacrum/coccyx: Visualized SI joints are unremarkable. No acute fracture. Disc spaces: No acute findings. No significant narrowing. Soft tissues: Unremarkable. IMPRESSION: Visualized SI joints and lumbar spine are unremarkable. Electronically signed by: Stacey Keita MD 04/19/2020 7:52 PM CDT
[2020-04-19] MEDS: MORPHINE SULFATE INJ 10 MG/ML VIAL IM ONE (19:56)
[2020-04-19] MEDS: DEXAMETHASONE 4 MG TAB PO ONE (19:56)
[2020-04-19] MEDS: diazePAM 2 MG TAB PO ONE (19:57)
[2020-04-19] MEDS: ONDANSETRON ODT 8 MG TAB SL ONE (19:57)
[2020-04-19 20:23] VITALS: BP 141/110; TEMP 97; O2SAT 95
== END 2020-04-19 20:08 | disposition home or self-care (01) ==
LOC: ER 19:04
DX: M46.1 Sacroiliitis, not elsewhere classified (principal); G57.01 Lesion of sciatic nerve, right lower limb; M54.41 Lumbago with sciatica, right side; E07.9 Disorder of thyroid, unspecified; E11.9 Type 2 diabetes mellitus without complications; Z87.891 Personal history of nicotine dependence; Z79.899 Other long term (current) drug therapy
CPT/HCPCS: 72100; J2270; J8540

== ENCOUNTER → 2020-05-02 | Outpatient (CLI) | payer OTHER ==
--- NOTE | 2020-05-03 15:58 | MRI ---
EXAM DESCRIPTION: Lumbar Spine w/o Contrast : Magnetic Resonance Imaging. CLINICAL HISTORY: RADICULOPATHY COMPARISON: MRI scan lumbar spine without contrast April 2018. TECHNIQUE: Multiplanar, multiple standard sequences, non contrast MRI, lumbar spine. FINDINGS: L5-S1: The disc is well visualized on axial T2 series 501, image 3. Normal signal in the disc with disc space maintained. Minimal effusion and hypertrophy in the left facet joint. Canal is patent with mild foraminal narrowing. Again noted are bilateral Tarlov cysts at the S1-S2 level. No interval change. L4-L5: Disc desiccation and minimal disc space loss. No posterior bulging, but minimal bulge into the base of the right foramen. Hypertrophic changes in the posterior flavum ligaments and facet joints (canal elements) mild canal narrowing. Minimal narrowing right foramen with left foramen patent. No change from the prior study. L3-L4: Normal signal in the disc with disc space maintained. Minimal hypertrophic changes in the canal elements. Canal and foramina are patent. Stable since the prior study. L2-L3: Normal signal in the disc with disc space maintained. Mild hypertrophy canal elements with canal patent. Bilateral foramina are patent. No interval change. L1-L2: Disc space maintained with normal disc signal and no bulging. Minimal hypertrophy of the canal elements. Canal and foramina are patent. Conus terminates just above the disc space. No change from the prior study. T12-L1: Normal disc space and disc. Canal elements are negative. Canal and foramina are patent. L2-L5 dextroscoliosis. Paravertebral soft tissues unremarkable.. Distal cord normal signal and caliber. Focal hyperintense circumscribed hemangioma posterior right sacral segment inferiorly in the disc space is unchanged. Otherwise normal marrow signal in the remaining vertebral bodies and the posterior elements. Vertebral bodies are not compressed at any level. IMPRESSION: 1. Multilevel hypertrophic changes in the facet joints and posterior flavum ligaments contributing to canal narrowing. 2. Desiccated L4-5 disc with decreased despite adjacent minimal bulge into the base of the right foramen. Stable with narrowed foramen but no nerve impingement. 3. Possible progression of scoliosis since the prior study. Electronically signed by: Larry Rees MD 05/03/2020 3:57 PM CDT
== END ==
LOC: MRI 13:01
PROVIDERS: ATTEND Nurse Practitioner Family
DX: M51.36 Other intervertebral disc degeneration, lumbar region (principal); M51.86 Other intervertebral disc disorders, lumbar region; M24.28 Disorder of ligament, vertebrae; M46.96 Unspecified inflammatory spondylopathy, lumbar region